=== PATIENT | female | born 1955 | race Two or more races ===

== ENCOUNTER 2021-01-15 14:55 | Inpatient (IN) | payer MEDICAID ==
[~2021-01-15] VITALS: Ht 160 cm; Wt 100.0 kg
[~2021-01-15 14:55] MED LIST: AMOX500T86 PO; ASCO500C49 PO; ASPI-543 PO; ATOR80TA PO; BUSP5TAB51 PO; CETI10CH PO; CHOL10006 PO; FERR-20 PO; FLUT0.05 NAS; FURO40TA4 PO; GABA300C10 PO; LEVO100T8 PO; LOS25T GT; METO25TA93 PO; ONDA-155 PO; PANT40TA2 PO; PRED20TA2 PO; SULF400T PO; SULF400T11 PO; SULF500T8 PO; VENL150T19 PO
[2021-01-15 16:01] LABS: Basophils # (auto) 0 10 ^3/uL (0-0.2); Basophils % (auto) 0.3 % (0.0-2.0); Eosinophils # (auto) 0 10 ^3/uL (0-0.8); Eosinophils % (auto) 0.3 % (0.0-7.0); Hematocrit 40.6 % (36.0-46.0); Hemoglobin 13.3 g/dL (12.2-16.2); Lymphocytes # (auto) 0.8 10 ^3/uL (0.4-5.4); Lymphocytes % (auto) 6.7 % (10.0-50.0); Mean Corpuscular Hgb Conc. 32.7 g/dL (32.0-36.0); Mean Corpuscular Volume 85.4 fL (80.0-100.0); Monocytes # (auto) 0.2 10 ^3/uL (0-1.3); Monocytes % (auto) 1.5 % (0.0-12.0); Neutrophils # (auto) 11.1 10 ^3/uL (1.6-8.6); Neutrophils % (auto) 91.2 % (37.0-80.0); Red Blood Cells 4.75 10^6/uL (4.0-5.20); Red Cell Distribution Width 14.7 % (11.8-14.3); White Blood Cell 12.2 10^3/uL (4.4-10.8)
[2021-01-15 16:22] LABS: Albumin 3.1 g/dL (3.4-5.0); Calcium 8.5 mg/dL (8.5-10.1); Potassium 3.9 mmol/L (3.5-5.1)
[2021-01-15 16:27] LABS: BUN/Creatinine Ratio 18.6; Bilirubin, Total 0.5 mg/dL (0.2-1.0); Total Protein 7.6 g/dL (6.4-8.2)
[2021-01-15] MEDS ORDERED: cefTRIAXone 1GM/50ML D5W 50 ML IV ONE (16:45)
[2021-01-15] MEDS ORDERED: FUROSEMIDE 40 MG/4 ML VIAL IV ONE (16:45)
[2021-01-15] MEDS ORDERED: AZITHROMYCIN 500MG/ 250ML 250 ML IV ONE (16:45)
[2021-01-15 21:52] LABS: Urine WBC None Seen /hpf (0 - 5)
[2021-01-15 22:09] LABS: Urine Bacteria NONE SEEN /hpf (None Seen); Urine Blood TRACE /uL (Negative); Urine Specific Gravity 1.014 (1.001-1.035)
[2021-01-16] MEDS ORDERED: NITROGLYCERIN 0.4 MG SL TAB SL PRN (15:00)
[2021-01-16] MEDS ORDERED: ONDANSETRON HCL 4 MG/2 ML VIAL IV PRN (15:00)
[2021-01-16] MEDS ORDERED: MORPHINE SULFATE INJECTION 2 MG/ML SYRG IV PRN ×2 (15:00)
[2021-01-16] MEDS ORDERED: ACETAMINOPHEN 500 MG TAB PO PRN (15:00)
[2021-01-16 16:00] VITALS: BP 134/83
[2021-01-16] MEDS: PIPERACILLIN-TAZOB 3.375GM 100 ML IV SCH (16:45)
[2021-01-16 17:00] VITALS: BP 130/79
[2021-01-16] MEDS: guaiFENesin-DM 100/10mg/5ml SYR PO PRN (17:40)
[2021-01-16 22:16] VITALS: BP 118/78
[2021-01-16] MEDS: GABAPENTIN 300 MG CAP PO SCH (22:17)
[2021-01-17] MEDS: PIPERACILLIN-TAZOB 3.375GM 100 ML IV SCH ×4 (00:35→23:58)
[2021-01-17 03:07] VITALS: BP 118/78
[2021-01-17] MEDS: LEVOTHYROXINE SODIUM 100 MCG TAB PO SCH (06:14)
[2021-01-17] MEDS: HYDROcodone-ACET 5/325MG TAB PO PRN ×2 (08:36→14:21)
[2021-01-17] MEDS: guaiFENesin-DM 100/10mg/5ml SYR PO PRN ×2 (08:37→14:20)
[2021-01-17 08:44] VITALS: BP 129/95
[2021-01-17] MEDS: LOSARTAN POTASSIUM 25 MG TAB PO SCH (10:35)
[2021-01-17] MEDS: VENLAFAXINE HCL 37.5mg XR cap PO SCH (10:36)
[2021-01-17] MEDS: GABAPENTIN 300 MG CAP PO SCH ×2 (10:37→21:34)
[2021-01-17] MEDS: PANTOPRAZOLE 40 MG TAB PO SCH (10:37)
[2021-01-17] MEDS ORDERED: methylPREDNISolone SOD SUCC 40 MG/ML VL IV ONE (11:45)
[2021-01-17 13:00] VITALS: BP 167/81
[2021-01-17 17:00] VITALS: BP 113/72
[2021-01-17] MEDS ORDERED: AZITHROMYCIN 250 MG TAB PO ONE (19:45)
[2021-01-17] MEDS ORDERED: methylPREDNISolone SOD SUCC 40 MG/ML VL IV SCH (20:00)
[2021-01-17 22:00] VITALS: BP 105/65
[2021-01-18 04:44] VITALS: BP 125/78
[2021-01-18] MEDS: LEVOTHYROXINE SODIUM 100 MCG TAB PO SCH (06:19)
[2021-01-18 08:00] VITALS: BP 145/80
[2021-01-18] MEDS: PIPERACILLIN-TAZOB 3.375GM 100 ML IV SCH ×2 (08:00→17:56)
[2021-01-18 09:00] VITALS: BP 145/80
[2021-01-18] MEDS: predniSONE 20 MG TAB PO SCH (09:36)
[2021-01-18] MEDS: PANTOPRAZOLE 40 MG TAB PO SCH (09:37)
[2021-01-18] MEDS: GABAPENTIN 300 MG CAP PO SCH ×2 (09:37→21:46)
[2021-01-18] MEDS: VENLAFAXINE HCL 37.5mg XR cap PO SCH (09:37)
[2021-01-18] MEDS: AZITHROMYCIN 250 MG TAB PO SCH (09:38)
[2021-01-18] MEDS: LOSARTAN POTASSIUM 25 MG TAB PO SCH (09:42)
[2021-01-18 10:28] LABS: Basophils # (auto) 0 10 ^3/uL (0-0.2); Basophils % (auto) 0.5 % (0.0-2.0); Eosinophils # (auto) 0.3 10 ^3/uL (0-0.8); Eosinophils % (auto) 2.9 % (0.0-7.0); Hematocrit 37.2 % (36.0-46.0); Hemoglobin 12.3 g/dL (12.2-16.2); Lymphocytes # (auto) 1.6 10 ^3/uL (0.4-5.4); Lymphocytes % (auto) 17.7 % (10.0-50.0); Mean Corpuscular Hemoglobin 28.3 pg (28.0-32.0); Mean Corpuscular Hgb Conc. 33.1 g/dL (32.0-36.0); Mean Corpuscular Volume 85.4 fL (80.0-100.0); Monocytes # (auto) 1.1 10 ^3/uL (0-1.3); Monocytes % (auto) 12.2 % (0.0-12.0); Neutrophils % (auto) 66.7 % (37.0-80.0); Red Blood Cells 4.35 10^6/uL (4.0-5.20); Red Cell Distribution Width 14.4 % (11.8-14.3); White Blood Cell 9.1 10^3/uL (4.4-10.8)
[2021-01-18 10:56] LABS: BUN/Creatinine Ratio 26.8; Calcium 8.4 mg/dL (8.5-10.1); Potassium 3.9 mmol/L (3.5-5.1)
[2021-01-18] MEDS: ALBUTEROL SULF 2.5 MG/0.5ML(0.5%) NEB SOLN NEB PRN ×2 (11:35→20:28)
[2021-01-18] MEDS: IPRATROPIUM BROM 0.5 MG/2.5ML INH SOL NEB PRN ×2 (11:36→20:28)
[2021-01-18 13:00] VITALS: BP 136/72
[2021-01-18] MEDS ORDERED: FLUCONAZOLE 200MG/100ML 100 ML IV ONE (16:45)
[2021-01-18 17:00] VITALS: BP 141/79
[2021-01-18 22:00] VITALS: BP 112/67
[2021-01-19] MEDS: PIPERACILLIN-TAZOB 3.375GM 100 ML IV SCH ×3 (00:28→17:30)
[2021-01-19] MEDS: guaiFENesin-DM 100/10mg/5ml SYR PO PRN ×2 (00:40→15:36)
[2021-01-19] MEDS: IPRATROPIUM BROM 0.5 MG/2.5ML INH SOL NEB PRN ×2 (01:30→20:18)
[2021-01-19] MEDS: ALBUTEROL SULF 2.5 MG/0.5ML(0.5%) NEB SOLN NEB PRN ×2 (01:30→20:18)
[2021-01-19 05:00] VITALS: BP 136/81
[2021-01-19] MEDS: LEVOTHYROXINE SODIUM 100 MCG TAB PO SCH (06:35)
[2021-01-19 08:00] VITALS: BP 143/78
[2021-01-19] MEDS: FLUCONAZOLE 200MG/100ML 100 ML IV SCH ×2 (10:00→12:28)
[2021-01-19] MEDS: predniSONE 20 MG TAB PO SCH (10:00)
[2021-01-19] MEDS: LOSARTAN POTASSIUM 25 MG TAB PO SCH (10:30)
[2021-01-19] MEDS: GABAPENTIN 300 MG CAP PO SCH ×2 (10:30→21:40)
[2021-01-19] MEDS: PANTOPRAZOLE 40 MG TAB PO SCH (10:30)
[2021-01-19] MEDS: VENLAFAXINE HCL 37.5mg XR cap PO SCH (10:30)
[2021-01-19] MEDS: AZITHROMYCIN 250 MG TAB PO SCH (10:30)
[2021-01-19 13:00] VITALS: BP 130/75
[2021-01-19 16:55] VITALS: BP 139/86
[2021-01-19 22:00] VITALS: BP 123/76
[2021-01-19 22:05] VITALS: BP 139/86
[2021-01-20] MEDS: PIPERACILLIN-TAZOB 3.375GM 100 ML IV SCH ×2 (00:17→08:23)
[2021-01-20 05:00] VITALS: BP 131/75
[2021-01-20] MEDS: LEVOTHYROXINE SODIUM 100 MCG TAB PO SCH (06:35)
[2021-01-20 08:32] VITALS: BP 142/88
[2021-01-20] MEDS: FLUCONAZOLE 200MG/100ML 100 ML IV SCH ×3 (10:00→11:00)
[2021-01-20] MEDS: predniSONE 20 MG TAB PO SCH (10:31)
[2021-01-20] MEDS: AZITHROMYCIN 250 MG TAB PO SCH (10:31)
[2021-01-20] MEDS: VENLAFAXINE HCL 37.5mg XR cap PO SCH (10:31)
[2021-01-20] MEDS: GABAPENTIN 300 MG CAP PO SCH (10:31)
[2021-01-20] MEDS: PANTOPRAZOLE 40 MG TAB PO SCH (10:31)
[2021-01-20] MEDS: LOSARTAN POTASSIUM 25 MG TAB PO SCH (10:32)
[2021-01-20] MEDS ORDERED: PRED20TA2 PO (12:00)
[2021-01-20 12:50] VITALS: BP 133/64
[2021-01-20 13:00] VITALS: BP 133/64
== END 2021-01-20 14:45 | disposition home or self-care (01) | DRG 133 ==
LOC: ER 14:55 → TELE 01-16 14:48 → TELE-CENTR 01-16 16:37
PROVIDERS: ADMIT Nurse Practitioner Acute Care; ATTEND Internal Medicine Nephrology
DX: J96.21 Acute and chronic respiratory failure with hypoxia (principal); J18.9 Pneumonia, unspecified organism; M34.9 Systemic sclerosis, unspecified; I11.0 Hypertensive heart disease with heart failure; E88.09 Other disorders of plasma-protein metabolism, not elsewhere classified; J45.901 Unspecified asthma with (acute) exacerbation; I50.9 Heart failure, unspecified; J84.10 Pulmonary fibrosis, unspecified; K75.4 Autoimmune hepatitis; M35.1 Other overlap syndromes; M32.9 Systemic lupus erythematosus, unspecified; E78.5 Hyperlipidemia, unspecified; E03.9 Hypothyroidism, unspecified; K21.9 Gastro-esophageal reflux disease without esophagitis; Z20.822 Contact with and (suspected) exposure to COVID-19; E66.9 Obesity, unspecified; D72.829 Elevated white blood cell count, unspecified; Z68.39 Body mass index [BMI] 39.0-39.9, adult; Z88.8 Allergy status to other drugs, medicaments and biological substances; Z79.899 Other long term (current) drug therapy; Z82.5 Family history of asthma and other chronic lower respiratory diseases; Z86.15 Personal history of latent tuberculosis infection; Z86.16 Personal history of COVID-19; Z86.711 Personal history of pulmonary embolism; Z87.01 Personal history of pneumonia (recurrent)
CPT/HCPCS: 36415; 36600; 71045; 71250; 80048; 80053; 81001; 82542; 82805; 83880; 84484; 85025; 86738; 87040; 87070; 87077; 87081; 87205; 87278; 87426; 87804; 93005; 94640; 96365; 96367; 96375; G0378; J0696; J1450; J2543

== ENCOUNTER 2021-02-11 08:43 | Inpatient (IN) | payer MEDICAID ==
[~2021-02-11] VITALS: Ht 162.6 cm; Wt 102.7 kg
[2021-02-11 10:58] LABS: Basophils # (auto) 0.1 10 ^3/uL (0-0.2); Basophils % (auto) 1.5 % (0.0-2.0); Eosinophils # (auto) 0.3 10 ^3/uL (0-0.8); Eosinophils % (auto) 4.1 % (0.0-7.0); Hematocrit 39.5 % (36.0-46.0); Lymphocytes # (auto) 1.3 10 ^3/uL (0.4-5.4); Lymphocytes % (auto) 16.9 % (10.0-50.0); Mean Corpuscular Hemoglobin 27.9 pg (28.0-32.0); Mean Corpuscular Hgb Conc. 32.8 g/dL (32.0-36.0); Monocytes # (auto) 0.8 10 ^3/uL (0-1.3); Neutrophils # (auto) 5.2 10 ^3/uL (1.6-8.6); Neutrophils % (auto) 67.5 % (37.0-80.0); Nucleated Red Blood Cells % 0.1 %; Red Blood Cells 4.64 10^6/uL (4.0-5.20); Red Cell Distribution Width 15.1 % (11.8-14.3); White Blood Cell 7.7 10^3/uL (4.4-10.8)
[2021-02-11 12:10] LABS: BUN/Creatinine Ratio 17.5; Potassium 3.7 mmol/L (3.5-5.1)
[2021-02-11 12:11] LABS: Albumin 2.7 g/dL (3.4-5.0); Bilirubin, Total 0.4 mg/dL (0.2-1.0); Calcium 8.6 mg/dL (8.5-10.1); Total Protein 6.9 g/dL (6.4-8.2)
[2021-02-11] MEDS ORDERED: MORPHINE SULFATE INJECTION 2 MG/ML SYRG IV ONE (17:00)
[2021-02-11] MEDS ORDERED: ONDANSETRON HCL 4 MG/2 ML VIAL IV ONE (17:00)
[2021-02-11] MEDS ORDERED: ONDANSETRON HCL 4 MG/2 ML VIAL IV PRN (18:30)
[2021-02-11] MEDS ORDERED: LORazepam 0.5 MG TAB PO PRN (18:30)
[2021-02-11] MEDS ORDERED: MORPHINE SULFATE 4 MG/ML SYR/VIAL IV PRN (18:30)
[2021-02-11] MEDS ORDERED: NITROGLYCERIN 0.4 MG SL TAB SL PRN (18:30)
[2021-02-11 22:30] VITALS: BP 125/65
[2021-02-11] MEDS: METOPROLOL TARTRATE 25 MG TAB PO SCH (23:00)
[2021-02-11] MEDS: ATORVASTATIN 20 MG TAB PO SCH (23:44)
[2021-02-11] MEDS: ACETAMINOPHEN 325 MG TAB PO PRN (23:45)
[2021-02-12] VITALS (7 sets, daily range): BP systolic 101–137; BP diastolic 56–98
[2021-02-12 06:37] LABS: Basophils # (auto) 0.1 10 ^3/uL (0-0.2); Basophils % (auto) 1.6 % (0.0-2.0); Eosinophils # (auto) 0.5 10 ^3/uL (0-0.8); Eosinophils % (auto) 8.1 % (0.0-7.0); Hematocrit 36.6 % (36.0-46.0); Hemoglobin 12.2 g/dL (12.2-16.2); Lymphocytes # (auto) 1.7 10 ^3/uL (0.4-5.4); Mean Corpuscular Hemoglobin 28.2 pg (28.0-32.0); Mean Corpuscular Hgb Conc. 33.4 g/dL (32.0-36.0); Mean Corpuscular Volume 84.4 fL (80.0-100.0); Monocytes # (auto) 0.8 10 ^3/uL (0-1.3); Neutrophils # (auto) 2.6 10 ^3/uL (1.6-8.6); Neutrophils % (auto) 46.3 % (37.0-80.0); Nucleated Red Blood Cells % 0.2 %; Red Blood Cells 4.34 10^6/uL (4.0-5.20); White Blood Cell 5.6 10^3/uL (4.4-10.8)
[2021-02-12] MEDS: ACETAMINOPHEN 325 MG TAB PO PRN ×3 (06:37→22:39)
[2021-02-12 06:52] LABS: Calcium 8.4 mg/dL (8.5-10.1); Magnesium 2.8 mg/dL (1.6-2.6); Potassium 4.2 mmol/L (3.5-5.1)
[2021-02-12 07:00] LABS: BUN/Creatinine Ratio 17.7
[2021-02-12] MEDS: METOPROLOL TARTRATE 25 MG TAB PO SCH ×2 (08:52→22:00)
[2021-02-12] MEDS: DOCUSATE SOD 100 MG CAP PO SCH (08:52)
[2021-02-12] MEDS: ASPirin 81 mg TAB PO SCH (08:52)
[2021-02-12] MEDS ORDERED: CLOPIDOGREL BISULFATE 75 MG TAB PO SCH (10:00)
[2021-02-12] MEDS ORDERED: PANTOPRAZOLE 40 MG TAB PO ONE (15:15)
[2021-02-12] MEDS ORDERED: predniSONE 20 MG TAB PO ONE (15:15)
[2021-02-12] MEDS: BUDESONIDE (INHALATION) 0.5 MG/2 ML NEB NEB SCH (19:03)
[2021-02-12] MEDS: ALBUTEROL SULF 2.5 MG/0.5ML(0.5%) NEB SOLN NEB SCH ×2 (19:03→22:10)
[2021-02-12] MEDS: IPRATROPIUM BROM 0.5 MG/2.5ML INH SOL NEB SCH ×2 (19:03→22:10)
[2021-02-12] MEDS: ATORVASTATIN 20 MG TAB PO SCH (22:00)
[2021-02-13] VITALS (8 sets, daily range): BP systolic 116–162; BP diastolic 66–84
[2021-02-13] MEDS: ACETAMINOPHEN 325 MG TAB PO PRN (05:28)
[2021-02-13] MEDS: IPRATROPIUM BROM 0.5 MG/2.5ML INH SOL NEB SCH ×5 (06:46→22:09)
[2021-02-13] MEDS: ALBUTEROL SULF 2.5 MG/0.5ML(0.5%) NEB SOLN NEB SCH ×5 (06:46→22:09)
[2021-02-13] MEDS: ASPirin 81 mg TAB PO SCH (08:24)
[2021-02-13] MEDS: predniSONE 20 MG TAB PO SCH (08:24)
[2021-02-13] MEDS: DOCUSATE SOD 100 MG CAP PO SCH (08:24)
[2021-02-13] MEDS: PANTOPRAZOLE 40 MG TAB PO SCH (08:25)
[2021-02-13] MEDS: METOPROLOL TARTRATE 25 MG TAB PO SCH ×2 (08:25→21:46)
[2021-02-13] MEDS: BUDESONIDE (INHALATION) 0.5 MG/2 ML NEB NEB SCH ×2 (10:30→19:18)
[2021-02-13] MEDS ORDERED: PRED20TA2 PO (16:23)
[2021-02-13] MEDS ORDERED: MONT5CHW23 PO (16:23)
[2021-02-13] MEDS: busPIRone HCL 10 MG TAB PO SCH (21:46)
[2021-02-13] MEDS: ATORVASTATIN 20 MG TAB PO SCH (21:46)
[2021-02-13] MEDS: MONTELUKAST SODIUM 10 MG TAB PO SCH (21:47)
[2021-02-14 05:00] VITALS: BP 136/74
[2021-02-14] MEDS: IPRATROPIUM BROM 0.5 MG/2.5ML INH SOL NEB SCH ×5 (07:32→22:04)
[2021-02-14] MEDS: BUDESONIDE (INHALATION) 0.5 MG/2 ML NEB NEB SCH ×2 (07:32→14:16)
[2021-02-14] MEDS: ALBUTEROL SULF 2.5 MG/0.5ML(0.5%) NEB SOLN NEB SCH ×5 (07:32→22:04)
[2021-02-14 09:00] VITALS: BP 121/62
[2021-02-14] MEDS: ASPirin 81 mg TAB PO SCH (09:14)
[2021-02-14] MEDS: DOCUSATE SOD 100 MG CAP PO SCH (09:15)
[2021-02-14] MEDS: METOPROLOL TARTRATE 25 MG TAB PO SCH ×2 (09:15→21:13)
[2021-02-14] MEDS: predniSONE 20 MG TAB PO SCH (09:15)
[2021-02-14] MEDS: ACETAMINOPHEN 325 MG TAB PO PRN ×2 (09:16→19:22)
[2021-02-14] MEDS: PANTOPRAZOLE 40 MG TAB PO SCH (09:16)
[2021-02-14] MEDS: FUROSEMIDE 20 MG TAB PO SCH (09:36)
[2021-02-14 12:39] VITALS: BP 132/76
[2021-02-14 16:52] VITALS: BP 104/63
[2021-02-14] MEDS: ATORVASTATIN 20 MG TAB PO SCH (21:09)
[2021-02-14] MEDS: busPIRone HCL 10 MG TAB PO SCH (21:09)
[2021-02-14] MEDS: MONTELUKAST SODIUM 10 MG TAB PO SCH (21:11)
[2021-02-14 21:40] VITALS: BP 105/69
[2021-02-15] VITALS (7 sets, daily range): BP systolic 107–136; BP diastolic 61–72
[2021-02-15] MEDS: ALBUTEROL SULF 2.5 MG/0.5ML(0.5%) NEB SOLN NEB SCH ×5 (07:11→22:42)
[2021-02-15] MEDS: IPRATROPIUM BROM 0.5 MG/2.5ML INH SOL NEB SCH ×5 (07:11→22:42)
[2021-02-15] MEDS: DOCUSATE SOD 100 MG CAP PO SCH (09:52)
[2021-02-15] MEDS: predniSONE 20 MG TAB PO SCH (09:52)
[2021-02-15] MEDS: PANTOPRAZOLE 40 MG TAB PO SCH (09:52)
[2021-02-15] MEDS: FUROSEMIDE 20 MG TAB PO SCH (09:52)
[2021-02-15] MEDS: ASPirin 81 mg TAB PO SCH (09:52)
[2021-02-15] MEDS: busPIRone HCL 10 MG TAB PO SCH ×2 (09:53→21:30)
[2021-02-15] MEDS: METOPROLOL TARTRATE 25 MG TAB PO SCH ×2 (09:53→21:30)
[2021-02-15] MEDS: BUDESONIDE (INHALATION) 0.5 MG/2 ML NEB NEB SCH ×2 (10:34→18:36)
[2021-02-15 11:49] LABS: Basophils # (auto) 0.1 10 ^3/uL (0-0.2); Basophils % (auto) 0.8 % (0.0-2.0); Eosinophils # (auto) 0.4 10 ^3/uL (0-0.8); Eosinophils % (auto) 3.6 % (0.0-7.0); Hematocrit 40.7 % (36.0-46.0); Hemoglobin 13.2 g/dL (12.2-16.2); Lymphocytes % (auto) 18.3 % (10.0-50.0); Mean Corpuscular Hemoglobin 27.3 pg (28.0-32.0); Mean Corpuscular Hgb Conc. 32.5 g/dL (32.0-36.0); Monocytes # (auto) 1.1 10 ^3/uL (0-1.3); Monocytes % (auto) 9.9 % (0.0-12.0); Neutrophils # (auto) 7.3 10 ^3/uL (1.6-8.6); Neutrophils % (auto) 67.4 % (37.0-80.0); Red Blood Cells 4.85 10^6/uL (4.0-5.20); Red Cell Distribution Width 14.9 % (11.8-14.3); White Blood Cell 10.9 10^3/uL (4.4-10.8)
[2021-02-15 12:15] LABS: BUN/Creatinine Ratio 32.7; Calcium 8.8 mg/dL (8.5-10.1)
[2021-02-15] MEDS: ATORVASTATIN 20 MG TAB PO SCH (21:31)
[2021-02-15] MEDS: MONTELUKAST SODIUM 10 MG TAB PO SCH (21:31)
[2021-02-16] MEDS: ACETAMINOPHEN 325 MG TAB PO PRN (04:40)
[2021-02-16 05:00] VITALS: BP 126/62
[2021-02-16] MEDS: ALBUTEROL SULF 2.5 MG/0.5ML(0.5%) NEB SOLN NEB SCH ×5 (08:46→22:17)
[2021-02-16] MEDS: BUDESONIDE (INHALATION) 0.5 MG/2 ML NEB NEB SCH ×2 (08:46→22:17)
[2021-02-16] MEDS: IPRATROPIUM BROM 0.5 MG/2.5ML INH SOL NEB SCH ×5 (08:46→22:17)
[2021-02-16 09:00] VITALS: BP 117/84
[2021-02-16] MEDS: busPIRone HCL 10 MG TAB PO SCH ×2 (10:14→22:15)
[2021-02-16] MEDS: predniSONE 20 MG TAB PO SCH (10:14)
[2021-02-16] MEDS: ASPirin 81 mg TAB PO SCH (10:14)
[2021-02-16] MEDS: PANTOPRAZOLE 40 MG TAB PO SCH (10:15)
[2021-02-16] MEDS: DOCUSATE SOD 100 MG CAP PO SCH (10:15)
[2021-02-16] MEDS: METOPROLOL TARTRATE 25 MG TAB PO SCH ×2 (10:15→22:15)
[2021-02-16] MEDS: FUROSEMIDE 20 MG TAB PO SCH (10:15)
[2021-02-16] MEDS ORDERED: METOPROLOL TARTRATE 25 MG TAB PO ONE (11:00)
[2021-02-16 13:00] VITALS: BP 135/74
[2021-02-16] MEDS ORDERED: METH4PAK PO (14:23)
[2021-02-16] MEDS ORDERED: MET25T PO (14:24)
[2021-02-16 16:55] VITALS: BP 97/46
[2021-02-16 22:01] VITALS: BP 119/83
[2021-02-16] MEDS: ATORVASTATIN 20 MG TAB PO SCH (22:13)
[2021-02-16] MEDS: MONTELUKAST SODIUM 10 MG TAB PO SCH (22:13)
[2021-02-17 05:00] VITALS: BP 130/67
[2021-02-17] MEDS: IPRATROPIUM BROM 0.5 MG/2.5ML INH SOL NEB SCH ×4 (06:35→14:43)
[2021-02-17] MEDS: ALBUTEROL SULF 2.5 MG/0.5ML(0.5%) NEB SOLN NEB SCH ×4 (06:35→14:43)
[2021-02-17] MEDS: BUDESONIDE (INHALATION) 0.5 MG/2 ML NEB NEB SCH (06:35)
[2021-02-17 08:38] VITALS: BP 155/72
[2021-02-17] MEDS: METOPROLOL TARTRATE 25 MG TAB PO SCH (10:10)
[2021-02-17] MEDS: busPIRone HCL 10 MG TAB PO SCH (10:11)
[2021-02-17] MEDS: predniSONE 20 MG TAB PO SCH (10:11)
[2021-02-17] MEDS: DOCUSATE SOD 100 MG CAP PO SCH (10:11)
[2021-02-17] MEDS: FUROSEMIDE 20 MG TAB PO SCH (10:11)
[2021-02-17] MEDS: PANTOPRAZOLE 40 MG TAB PO SCH (10:11)
[2021-02-17] MEDS: ASPirin 81 mg TAB PO SCH (10:11)
[2021-02-17] MEDS ORDERED: PRED20TA2 PO (10:21)
[2021-02-17] MEDS ORDERED: VENL150T19 PO (10:51)
[2021-02-17] MEDS ORDERED: GABA300C10 PO (10:51)
[2021-02-17] MEDS ORDERED: ATOR-47 PO (10:51)
[2021-02-17] MEDS ORDERED: MONT10TA23 PO (10:51)
[2021-02-17] MEDS ORDERED: METO25TA5 PO (10:51)
[2021-02-17] MEDS ORDERED: ALBUAER3 IN (10:51)
[2021-02-17] MEDS ORDERED: PANT40T PO (10:51)
[2021-02-17] MEDS ORDERED: FERR-20 PO (10:51)
[2021-02-17] MEDS ORDERED: BUSP5TAB51 PO (10:51)
[2021-02-17] MEDS ORDERED: ASPI-543 PO (10:51)
[2021-02-17] MEDS ORDERED: LEVO100T8 PO (10:51)
[2021-02-17] MEDS ORDERED: FURO20TA3 PO (10:51)
[2021-02-17] MEDS ORDERED: METO25TA93 PO (10:56)
[2021-02-17 12:42] VITALS: BP 129/79
[2021-02-17 13:00] VITALS: BP 129/79
== END 2021-02-17 14:00 | disposition home or self-care (01) | DRG 142 ==
LOC: ER 08:43 → OVERFLOW 18:16 → TELE-WESTW 22:46
PROVIDERS: ADMIT Hospitalist; ATTEND Internal Medicine
DX: J84.10 Pulmonary fibrosis, unspecified (principal); J96.21 Acute and chronic respiratory failure with hypoxia; E43 Unspecified severe protein-calorie malnutrition; J45.901 Unspecified asthma with (acute) exacerbation; J44.9 Chronic obstructive pulmonary disease, unspecified; K21.9 Gastro-esophageal reflux disease without esophagitis; K74.60 Unspecified cirrhosis of liver; E66.01 Morbid (severe) obesity due to excess calories; E78.5 Hyperlipidemia, unspecified; I10 Essential (primary) hypertension; I35.0 Nonrheumatic aortic (valve) stenosis; Z88.8 Allergy status to other drugs, medicaments and biological substances; Z82.5 Family history of asthma and other chronic lower respiratory diseases; Z86.15 Personal history of latent tuberculosis infection; Z86.16 Personal history of COVID-19; Z86.711 Personal history of pulmonary embolism; Z68.38 Body mass index [BMI] 38.0-38.9, adult; Z20.822 Contact with and (suspected) exposure to COVID-19; Z68.27 Body mass index [BMI] 27.0-27.9, adult
CPT/HCPCS: 36415; 36600; 71045; 71250; 80048; 80053; 82805; 83735; 83880; 84439; 84443; 84484; 85025; 87426; 93005; 94640; 96374; 96375; G0378; J2405

== ENCOUNTER 2021-02-27 11:27 | Inpatient (IN) | payer MEDICAID ==
[~2021-02-27] VITALS: Ht 162.6 cm; Wt 99.5 kg
[~2021-02-27 11:27] MED LIST changes: +ALBUAER3 IN; -AMOX500T86 PO; +ATOR-47 PO; +FURO20TA3 PO; -FURO40TA4 PO; +MET25T PO; +METO25TA5 PO; +MONT10TA23 PO; +MONT5CHW23 PO; +PANT40T PO; -SULF400T PO; -SULF400T11 PO
[2021-02-27 12:38] LABS: Basophils # (auto) 0.1 10 ^3/uL (0-0.2); Basophils % (auto) 0.6 % (0.0-2.0); Eosinophils # (auto) 0.5 10 ^3/uL (0-0.8); Eosinophils % (auto) 4.4 % (0.0-7.0); Hematocrit 39.5 % (36.0-46.0); Hemoglobin 13.1 g/dL (12.2-16.2); Lymphocytes # (auto) 1.5 10 ^3/uL (0.4-5.4); Lymphocytes % (auto) 12.5 % (10.0-50.0); Mean Corpuscular Hemoglobin 28.1 pg (28.0-32.0); Mean Corpuscular Hgb Conc. 33.1 g/dL (32.0-36.0); Mean Corpuscular Volume 84.9 fL (80.0-100.0); Monocytes # (auto) 1.4 10 ^3/uL (0-1.3); Monocytes % (auto) 11.2 % (0.0-12.0); Neutrophils # (auto) 8.8 10 ^3/uL (1.6-8.6); Neutrophils % (auto) 71.3 % (37.0-80.0); Red Blood Cells 4.66 10^6/uL (4.0-5.20); Red Cell Distribution Width 15.1 % (11.8-14.3); White Blood Cell 12.4 10^3/uL (4.4-10.8)
[2021-02-27 12:53] LABS: Albumin 2.9 g/dL (3.4-5.0); Calcium 8.6 mg/dL (8.5-10.1); Potassium 4.4 mmol/L (3.5-5.1)
[2021-02-27 12:59] LABS: BUN/Creatinine Ratio 11.7; Bilirubin, Total 0.6 mg/dL (0.2-1.0); Total Protein 7.8 g/dL (6.4-8.2)
[2021-02-27 14:46] LABS: Urine Bacteria NONE SEEN /hpf (None Seen); Urine Blood 1+ /uL (Negative); Urine Mucus FEW (None Seen); Urine Specific Gravity 1.026 (1.001-1.035); Urine WBC 2 /hpf (0 - 5)
[2021-02-27] MEDS ORDERED: MORPHINE SULFATE INJECTION 2 MG/ML SYRG IV PRN ×2 (16:30→17:30)
[2021-02-27] MEDS ORDERED: NITROGLYCERIN 0.4 MG SL TAB SL PRN ×2 (16:30→17:30)
[2021-02-27] MEDS ORDERED: IPRATROPIUM BROM 0.5 MG/2.5ML INH SOL NEB ONE (17:00)
[2021-02-27] MEDS ORDERED: BUDESONIDE (INHALATION) 0.5 MG/2 ML NEB NEB ONE (17:00)
[2021-02-27] MEDS ORDERED: ALBUTEROL SULF 2.5 MG/0.5ML(0.5%) NEB SOLN NEB ONE (17:00)
[2021-02-27] MEDS ORDERED: methylPREDNISolone SOD SUCC 125 MG/2 ML VL IV ONE (17:00)
[2021-02-27] MEDS ORDERED: PANTOPRAZOLE 40 MG/10 ML VIAL INJ IV ONE (17:15)
[2021-02-27] MEDS ORDERED: ENOXAPARIN SOD 40 MG/0.4 ML SYRINGE SC ONE (17:15)
[2021-02-27] MEDS ORDERED: BENAZEPRIL HCL 10 MG TAB PO ONE (17:15)
[2021-02-27] MEDS ORDERED: cefTRIAXone 1GM/50ML D5W 50 ML IV ONE (17:15)
[2021-02-27] MEDS ORDERED: FLUT1SPR21 (17:21)
[2021-02-27] MEDS ORDERED: ASPI-498 PO (17:22)
[2021-02-27] MEDS ORDERED: PANT40TA57 PO (17:22)
[2021-02-27] MEDS ORDERED: IPRIH INH (17:23)
[2021-02-27] MEDS ORDERED: LOSA25TA38 PO (17:25)
[2021-02-27] MEDS ORDERED: BUTA-251 PO (17:25)
[2021-02-27] MEDS ORDERED: TEMAZEPAM 15 MG CAP PO PRN (17:30)
[2021-02-27] MEDS ORDERED: ALUM & MAG HYDROX-SIMETH LIQ(MAALOX) 30 ML PO PRN (17:30)
[2021-02-27] MEDS ORDERED: ACETAMINOPHEN 325 MG TAB PO PRN (17:30)
[2021-02-27] MEDS ORDERED: DOCUSATE SOD 100 MG CAP PO PRN (17:30)
[2021-02-27] MEDS ORDERED: ONDANSETRON HCL 4 MG/2 ML VIAL IV PRN (17:30)
[2021-02-27] MEDS ORDERED: AZITHROMYCIN 500MG/ 250ML 250 ML IV ONE (18:00)
[2021-02-27] MEDS: POTASSIUM CHL 20 Meq TABLET PO SCH (18:56)
[2021-02-27] MEDS: FUROSEMIDE 20 MG/2 ML VIAL IV SCH (18:57)
[2021-02-27 20:24] LABS: Cholesterol 137 mg/dL (< 200); Triglycerides 65 mg/dL (< 150)
[2021-02-27 20:25] VITALS: BP 145/68
[2021-02-27 20:27] LABS: HDL Cholesterol 66 mg/dL (40-59); LDL Cholesterol 67 mg/dL (< 100)
[2021-02-27] MEDS: [UNRECOGNIZED DRUG - OTHER] PO SCH (22:00)
[2021-02-27 22:29] VITALS: BP 127/55
[2021-02-28] VITALS (7 sets, daily range): BP systolic 105–136; BP diastolic 48–86
[2021-02-28] MEDS: IPRATROPIUM BROM 0.5 MG/2.5ML INH SOL NEB SCH ×8 (00:27→21:39)
[2021-02-28] MEDS: BUDESONIDE (INHALATION) 0.5 MG/2 ML NEB NEB SCH ×4 (00:27→09:46)
[2021-02-28] MEDS: MONTELUKAST SODIUM 10 MG TAB PO SCH ×2 (01:01→21:05)
[2021-02-28] MEDS: ATORVASTATIN 20 MG TAB PO SCH ×2 (01:02→21:04)
[2021-02-28] MEDS: hydrOXYchloroQUINE SULFATE 200 MG TAB PO SCH ×3 (01:02→21:05)
[2021-02-28] MEDS: methylPREDNISolone SOD SUCC 40 MG/ML VL IV SCH ×4 (01:03→21:04)
[2021-02-28] MEDS ORDERED: INFLUENZA QUAD 2021-2022 0.5 ML SYRG IM ONE (02:30)
[2021-02-28] MEDS: FUROSEMIDE 20 MG/2 ML VIAL IV SCH ×2 (06:12→18:02)
[2021-02-28] MEDS: LEVOTHYROXINE SODIUM 100 MCG TAB PO SCH (06:13)
[2021-02-28] MEDS: POTASSIUM CHL 20 Meq TABLET PO SCH ×2 (06:13→18:02)
[2021-02-28 06:15] LABS: Basophils # (auto) 0 10 ^3/uL (0-0.2); Basophils % (auto) 0.2 % (0.0-2.0); Eosinophils # (auto) 0 10 ^3/uL (0-0.8); Hematocrit 39.6 % (36.0-46.0); Hemoglobin 13.1 g/dL (12.2-16.2); Lymphocytes # (auto) 0.9 10 ^3/uL (0.4-5.4); Lymphocytes % (auto) 18.4 % (10.0-50.0); Mean Corpuscular Hgb Conc. 33.2 g/dL (32.0-36.0); Mean Corpuscular Volume 84.2 fL (80.0-100.0); Monocytes # (auto) 0.1 10 ^3/uL (0-1.3); Monocytes % (auto) 2.4 % (0.0-12.0); Neutrophils # (auto) 3.7 10 ^3/uL (1.6-8.6); Nucleated Red Blood Cells % 0.1 %; Red Cell Distribution Width 15.2 % (11.8-14.3); White Blood Cell 4.7 10^3/uL (4.4-10.8)
[2021-02-28 06:32] LABS: INR 1.12 (0.9-1.15); Partial Thromboplastin Time 27.7 sec (23.6-33.0); Potassium 3.9 mmol/L (3.5-5.1)
[2021-02-28 06:44] LABS: Albumin 2.8 g/dL (3.4-5.0); BUN/Creatinine Ratio 18.6; Bilirubin, Total 0.7 mg/dL (0.2-1.0); Calcium 8.4 mg/dL (8.5-10.1); Magnesium 2.9 mg/dL (1.6-2.6); Phosphorus 3.3 mg/dL (2.5-4.90); Uric Acid 3.9 mg/dL (2.6-6.0)
[2021-02-28] MEDS: [UNRECOGNIZED DRUG - OTHER] PO SCH ×2 (10:00→22:00)
[2021-02-28] MEDS: cefTRIAXone 1GM/50ML D5W 50 ML IV SCH (10:12)
[2021-02-28] MEDS: PANTOPRAZOLE 40 MG/10 ML VIAL INJ IV SCH (10:13)
[2021-02-28] MEDS: BENAZEPRIL HCL 10 MG TAB PO SCH (10:13)
[2021-02-28] MEDS: ASPirin 81 mg TAB PO SCH (10:13)
[2021-02-28] MEDS: ENOXAPARIN SOD 40 MG/0.4 ML SYRINGE SC SCH (10:14)
[2021-02-28] MEDS: METOPROLOL SUCCINATE XL 50 MG TAB PO SCH (10:14)
[2021-02-28] MEDS: AZITHROMYCIN 500MG/ 250ML 250 ML IV SCH (11:46)
[2021-02-28] MEDS: HYDROcodone-ACET 5/325MG TAB PO PRN (21:10)
[2021-03-01] MEDS: IPRATROPIUM BROM 0.5 MG/2.5ML INH SOL NEB SCH ×7 (02:10→22:45)
[2021-03-01 05:00] VITALS: BP 112/63
[2021-03-01] MEDS: LEVOTHYROXINE SODIUM 100 MCG TAB PO SCH (06:52)
[2021-03-01] MEDS: POTASSIUM CHL 20 Meq TABLET PO SCH ×2 (06:53→17:32)
[2021-03-01] MEDS: methylPREDNISolone SOD SUCC 40 MG/ML VL IV SCH ×3 (06:53→22:09)
[2021-03-01] MEDS: FUROSEMIDE 20 MG/2 ML VIAL IV SCH ×2 (06:54→17:33)
[2021-03-01] MEDS: BUDESONIDE (INHALATION) 0.5 MG/2 ML NEB NEB SCH ×2 (08:05→18:16)
[2021-03-01] MEDS: ASPirin 81 mg TAB PO SCH (08:56)
[2021-03-01] MEDS: PANTOPRAZOLE 40 MG/10 ML VIAL INJ IV SCH (08:56)
[2021-03-01] MEDS: cefTRIAXone 1GM/50ML D5W 50 ML IV SCH (08:56)
[2021-03-01] MEDS: METOPROLOL SUCCINATE XL 50 MG TAB PO SCH (08:57)
[2021-03-01] MEDS: BENAZEPRIL HCL 10 MG TAB PO SCH (08:57)
[2021-03-01] MEDS: ENOXAPARIN SOD 40 MG/0.4 ML SYRINGE SC SCH (08:57)
[2021-03-01] MEDS: hydrOXYchloroQUINE SULFATE 200 MG TAB PO SCH ×2 (08:57→22:10)
[2021-03-01] MEDS: [UNRECOGNIZED DRUG - OTHER] PO SCH ×2 (08:59→22:00)
[2021-03-01 09:00] VITALS: BP 132/93
[2021-03-01] MEDS: AZITHROMYCIN 500MG/ 250ML 250 ML IV SCH (10:02)
[2021-03-01] MEDS ORDERED: guaiFENesin-DM 100/10mg/5ml SYR PO ONE (11:00)
[2021-03-01] MEDS ORDERED: guaiFENesin-DM 100/10mg/5ml SYR PO PRN (11:00)
[2021-03-01 13:00] VITALS: BP 105/70
[2021-03-01 17:00] VITALS: BP 131/78
[2021-03-01 19:02] LABS: Basophils # (auto) 0 10 ^3/uL (0-0.2); Basophils % (auto) 0.1 % (0.0-2.0); Eosinophils # (auto) 0 10 ^3/uL (0-0.8); Hematocrit 41.4 % (36.0-46.0); Hemoglobin 13.3 g/dL (12.2-16.2); Lymphocytes % (auto) 6.8 % (10.0-50.0); Mean Corpuscular Hgb Conc. 32.1 g/dL (32.0-36.0); Mean Corpuscular Volume 84.1 fL (80.0-100.0); Monocytes # (auto) 0.9 10 ^3/uL (0-1.3); Monocytes % (auto) 5.7 % (0.0-12.0); Neutrophils # (auto) 13.4 10 ^3/uL (1.6-8.6); Neutrophils % (auto) 87.4 % (37.0-80.0); Red Blood Cells 4.92 10^6/uL (4.0-5.20); Red Cell Distribution Width 15.4 % (11.8-14.3); White Blood Cell 15.3 10^3/uL (4.4-10.8)
[2021-03-01 19:20] LABS: INR 1.07 (0.9-1.15); Partial Thromboplastin Time 25.1 sec (23.6-33.0)
[2021-03-01 19:22] LABS: BUN/Creatinine Ratio 29.5; Calcium 8.1 mg/dL (8.5-10.1); Potassium 4.3 mmol/L (3.5-5.1)
[2021-03-01] MEDS: ATORVASTATIN 20 MG TAB PO SCH (22:10)
[2021-03-01] MEDS: MONTELUKAST SODIUM 10 MG TAB PO SCH (22:11)
[2021-03-02] VITALS (8 sets, daily range): BP systolic 121–161; BP diastolic 60–95
[2021-03-02] MEDS: IPRATROPIUM BROM 0.5 MG/2.5ML INH SOL NEB SCH ×6 (03:12→23:10)
[2021-03-02] MEDS: POTASSIUM CHL 20 Meq TABLET PO SCH ×2 (06:00→17:36)
[2021-03-02] MEDS: FUROSEMIDE 20 MG/2 ML VIAL IV SCH ×2 (06:36→17:37)
[2021-03-02] MEDS: methylPREDNISolone SOD SUCC 40 MG/ML VL IV SCH ×3 (06:36→22:00)
[2021-03-02] MEDS: LEVOTHYROXINE SODIUM 100 MCG TAB PO SCH (06:37)
[2021-03-02] MEDS: PANTOPRAZOLE 40 MG/10 ML VIAL INJ IV SCH (10:00)
[2021-03-02] MEDS: ASPirin 81 mg TAB PO SCH (10:00)
[2021-03-02] MEDS: METOPROLOL SUCCINATE XL 50 MG TAB PO SCH (10:00)
[2021-03-02] MEDS: BENAZEPRIL HCL 10 MG TAB PO SCH (10:00)
[2021-03-02] MEDS: hydrOXYchloroQUINE SULFATE 200 MG TAB PO SCH ×2 (10:00→22:00)
[2021-03-02] MEDS: [UNRECOGNIZED DRUG - OTHER] PO SCH ×2 (10:00→22:00)
[2021-03-02] MEDS: ENOXAPARIN SOD 40 MG/0.4 ML SYRINGE SC SCH (10:00)
[2021-03-02] MEDS: BUDESONIDE (INHALATION) 0.5 MG/2 ML NEB NEB SCH ×2 (10:51→20:48)
[2021-03-02] MEDS ORDERED: LIDOCAINE 2%HCL (LOCAL ANESTH.) INJ 20ML MDV ONE (11:41)
[2021-03-02] MEDS ORDERED: IOHEXOL 350 MG/ML 100ML IJ ONE (11:41)
[2021-03-02] MEDS ORDERED: ANGIOMAX 250 MG VIAL IV ONE (11:45)
[2021-03-02] MEDS ORDERED: fentaNYL CITRATE 100 MCG/2 ML VL ONE (11:46)
[2021-03-02] MEDS ORDERED: SODIUM CHL 0.9% 0 ML ONE (11:46)
[2021-03-02] MEDS ORDERED: MIDAZOLAM HCL 2MG/2ML 2ml VIAL (1mg/ml) ONE (11:46)
[2021-03-02] MEDS: HYDROcodone-ACET 5/325MG TAB PO PRN (17:37)
[2021-03-02] MEDS: SODIUM CHLOR 0.9% PF (SALINE LOCK) 10ML VIAL/SYR IV SCH (21:00)
[2021-03-02] MEDS: MONTELUKAST SODIUM 10 MG TAB PO SCH (22:00)
[2021-03-02] MEDS: ATORVASTATIN 20 MG TAB PO SCH (22:00)
[2021-03-03] MEDS: IPRATROPIUM BROM 0.5 MG/2.5ML INH SOL NEB SCH ×4 (03:22→14:15)
[2021-03-03 05:00] VITALS: BP 115/64
[2021-03-03] MEDS: SODIUM CHLOR 0.9% PF (SALINE LOCK) 10ML VIAL/SYR IV SCH ×2 (05:00→14:28)
[2021-03-03] MEDS: POTASSIUM CHL 20 Meq TABLET PO SCH (06:00)
[2021-03-03] MEDS: methylPREDNISolone SOD SUCC 40 MG/ML VL IV SCH ×2 (06:17→14:28)
[2021-03-03] MEDS: LEVOTHYROXINE SODIUM 100 MCG TAB PO SCH (06:18)
[2021-03-03] MEDS: FUROSEMIDE 20 MG/2 ML VIAL IV SCH (06:31)
[2021-03-03 09:00] VITALS: BP 110/59
[2021-03-03] MEDS: BUDESONIDE (INHALATION) 0.5 MG/2 ML NEB NEB SCH (09:54)
[2021-03-03] MEDS: PANTOPRAZOLE 40 MG/10 ML VIAL INJ IV SCH (09:58)
[2021-03-03] MEDS: ASPirin 81 mg TAB PO SCH (10:00)
[2021-03-03] MEDS ORDERED: URSODIOL 300 MG CAP PO SCH (10:00)
[2021-03-03] MEDS: BENAZEPRIL HCL 10 MG TAB PO SCH (10:01)
[2021-03-03] MEDS: hydrOXYchloroQUINE SULFATE 200 MG TAB PO SCH (10:02)
[2021-03-03] MEDS: ENOXAPARIN SOD 40 MG/0.4 ML SYRINGE SC SCH (10:03)
[2021-03-03] MEDS: METOPROLOL SUCCINATE XL 50 MG TAB PO SCH (10:03)
[2021-03-03 13:00] VITALS: BP 137/65
[2021-03-03 15:07] VITALS: BP 137/65
[2021-03-03 16:00] VITALS: BP 132/54
== END 2021-03-03 17:11 | disposition home or self-care (01) | DRG 286 ==
LOC: ER 11:27 → OVERFLOW 17:24 → WEST WING 22:05 → TELE-WESTW 02-28 11:38
PROVIDERS: ADMIT Hospitalist; ATTEND Family Medicine
PROC: 4A023N8 Measurement of Cardiac Sampling and Pressure, Bilateral, Percutaneous Approach (ICD-10-PCS; principal; 2021-03-02)
PROC: B2111ZZ Fluoroscopy of Multiple Coronary Arteries using Low Osmolar Contrast (ICD-10-PCS; 2021-03-02)
PROC: B2151ZZ Fluoroscopy of Left Heart using Low Osmolar Contrast (ICD-10-PCS; 2021-03-02)
DX: I25.10 Atherosclerotic heart disease of native coronary artery without angina pectoris (principal); J18.9 Pneumonia, unspecified organism; J96.21 Acute and chronic respiratory failure with hypoxia; J45.901 Unspecified asthma with (acute) exacerbation; I50.30 Unspecified diastolic (congestive) heart failure; J44.0 Chronic obstructive pulmonary disease with (acute) lower respiratory infection; I11.0 Hypertensive heart disease with heart failure; J20.9 Acute bronchitis, unspecified; I35.0 Nonrheumatic aortic (valve) stenosis; E88.09 Other disorders of plasma-protein metabolism, not elsewhere classified; E66.01 Morbid (severe) obesity due to excess calories; E03.9 Hypothyroidism, unspecified; E78.5 Hyperlipidemia, unspecified; J84.10 Pulmonary fibrosis, unspecified; K75.4 Autoimmune hepatitis; M32.9 Systemic lupus erythematosus, unspecified; K21.9 Gastro-esophageal reflux disease without esophagitis; M34.9 Systemic sclerosis, unspecified; Z20.822 Contact with and (suspected) exposure to COVID-19; Z88.8 Allergy status to other drugs, medicaments and biological substances; Z80.49 Family history of malignant neoplasm of other genital organs; Z82.49 Family history of ischemic heart disease and other diseases of the circulatory system; Z82.5 Family history of asthma and other chronic lower respiratory diseases; Z86.16 Personal history of COVID-19; Z86.711 Personal history of pulmonary embolism; Z86.15 Personal history of latent tuberculosis infection; Z68.37 Body mass index [BMI] 37.0-37.9, adult
CPT/HCPCS: 36415; 36600; 71045; 71250; 72070; 73560; 80048; 80053; 80061; 81001; 82306; 82728; 82805; 83036; 83735; 83880; 84100; 84443; 84484; 84550; 85025; 85379; 85610; 85730; 86141; 86850; 86900; 86901; 87040; 87081; 87086; 87426; 93005; 93460; 94640; 96365; 96372; 96375; 99152; 99153; C1751; C9113; G0378; J0696; J2250

== ENCOUNTER 2021-04-04 12:33 | Inpatient (IN) | payer MEDICAID ==
[~2021-04-04] VITALS: Ht 162.6 cm; Wt 102.3 kg
[~2021-04-04 12:33] MED LIST changes: -ALBUAER3 IN; -ASCO500C49 PO; -ATOR80TA PO; +BUTA-251 PO; -CETI10CH PO; -CHOL10006 PO; -FLUT0.05 NAS; +FLUT1SPR21; +IPRIH INH; -LOS25T GT; +LOSA25TA38 PO; -METO25TA5 PO; -METO25TA93 PO; -MONT5CHW23 PO; -ONDA-155 PO; -PANT40TA2 PO; -SULF500T8 PO; -VENL150T19 PO
[2021-04-04 14:51] LABS: Basophils # (auto) 0 10 ^3/uL (0-0.2); Basophils % (auto) 0.4 % (0.0-2.0); Eosinophils # (auto) 0.1 10 ^3/uL (0-0.8); Hematocrit 38.7 % (36.0-46.0); Hemoglobin 12.9 g/dL (12.2-16.2); Lymphocytes # (auto) 0.9 10 ^3/uL (0.4-5.4); Lymphocytes % (auto) 13.6 % (10.0-50.0); Mean Corpuscular Hemoglobin 27.8 pg (28.0-32.0); Mean Corpuscular Hgb Conc. 33.3 g/dL (32.0-36.0); Mean Corpuscular Volume 83.5 fL (80.0-100.0); Monocytes # (auto) 0.6 10 ^3/uL (0-1.3); Monocytes % (auto) 9.6 % (0.0-12.0); Neutrophils % (auto) 75.4 % (37.0-80.0); Red Blood Cells 4.64 10^6/uL (4.0-5.20); Red Cell Distribution Width 16.1 % (11.8-14.3); White Blood Cell 6.6 10^3/uL (4.4-10.8)
[2021-04-04 15:13] LABS: Calcium 8.2 mg/dL (8.5-10.1)
[2021-04-04 15:20] LABS: BUN/Creatinine Ratio 16.1; Bilirubin, Total 0.4 mg/dL (0.2-1.0); Total Protein 7.2 g/dL (6.4-8.2)
[2021-04-04 16:11] LABS: Potassium 2.8 mmol/L (3.5-5.1)
[2021-04-04] MEDS: POTASSIUM CHL 20MEQ/50ML 50 ML IV SCH ×2 (19:30→21:30)
[2021-04-05] MEDS ORDERED: DexAMETHasone SOD PHOS 10MG/1ML VIAL INJ IV ONE
[2021-04-05] MEDS ORDERED: ONDANSETRON HCL 4 MG/2 ML VIAL IV PRN (05:45)
[2021-04-05] MEDS ORDERED: TEMAZEPAM 15 MG CAP PO PRN (05:45)
[2021-04-05] MEDS ORDERED: MORPHINE SULFATE INJECTION 2 MG/ML SYRG IV PRN (05:45)
[2021-04-05] MEDS ORDERED: ALBUTEROL SULF 2.5 MG/0.5ML(0.5%) NEB SOLN NEB PRN (05:45)
[2021-04-05] MEDS ORDERED: FUROSEMIDE 40 MG/4 ML VIAL IV ONE (05:45)
[2021-04-05] MEDS ORDERED: ACETAMINOPHEN 325 MG TAB PO PRN (05:45)
[2021-04-05] MEDS ORDERED: NITROGLYCERIN 0.4 MG SL TAB SL PRN (05:45)
[2021-04-05] MEDS ORDERED: IOHEXOL 350 MG/ML 100ML IJ ONE (05:56)
[2021-04-05] MEDS: BUDESONIDE (INHALATION) 180 MCG IH IN SCH (06:19)
[2021-04-05] MEDS: cefTRIAXone 1GM/50ML D5W 50 ML IV SCH (06:26)
[2021-04-05] MEDS: LEVOTHYROXINE SODIUM 100 MCG TAB PO SCH (06:32)
[2021-04-05] MEDS: AZITHROMYCIN 500MG/ 250ML 250 ML IV SCH (06:48)
[2021-04-05] MEDS ORDERED: POTASSIUM EFFERVESENT TAB 25 MEQ PO ONE (07:30)
[2021-04-05] MEDS ORDERED: dilTIAZem 125mg/125ml BAG KIT 125 ML IV ONE (08:40)
[2021-04-05] MEDS ORDERED: dilTIAZem 25 MG/5 ML VIAL IV ONE (08:45)
[2021-04-05] MEDS ORDERED: LORazepam 2MG/ML-1ML VIAL IV ONE (08:45)
[2021-04-05] MEDS ORDERED: ADENOSINE 6 MG/2 ML INJ IV ONE (08:45)
[2021-04-05] MEDS ORDERED: dilTIAZem 125mg/125ml BAG KIT 125 ML IV SCH ×2 (08:45→15:00)
[2021-04-05] MEDS ORDERED: POTASSIUM CHL 20MEQ/50ML 50 ML IV ONE (09:00)
[2021-04-05 09:06] LABS: Basophils # (auto) 0.1 10 ^3/uL (0-0.2); Basophils % (auto) 0.7 % (0.0-2.0); Eosinophils # (auto) 0.1 10 ^3/uL (0-0.8); Eosinophils % (auto) 1.9 % (0.0-7.0); Hematocrit 39.9 % (36.0-46.0); Hemoglobin 13.5 g/dL (12.2-16.2); Lymphocytes % (auto) 25.4 % (10.0-50.0); Mean Corpuscular Hemoglobin 28.1 pg (28.0-32.0); Mean Corpuscular Hgb Conc. 33.9 g/dL (32.0-36.0); Monocytes # (auto) 0.8 10 ^3/uL (0-1.3); Monocytes % (auto) 9.9 % (0.0-12.0); Neutrophils # (auto) 4.9 10 ^3/uL (1.6-8.6); Neutrophils % (auto) 62.1 % (37.0-80.0); Nucleated Red Blood Cells % 0.1 %; Red Blood Cells 4.81 10^6/uL (4.0-5.20); Red Cell Distribution Width 16.3 % (11.8-14.3); White Blood Cell 7.8 10^3/uL (4.4-10.8)
[2021-04-05] MEDS: ASPirin 81 mg TAB PO SCH (09:09)
[2021-04-05 09:21] LABS: Albumin 3.2 g/dL (3.4-5.0); BUN/Creatinine Ratio 15.3; Calcium 8.6 mg/dL (8.5-10.1); Potassium 3.3 mmol/L (3.5-5.1)
[2021-04-05 09:25] LABS: Bilirubin, Total 0.5 mg/dL (0.2-1.0); Total Protein 7.9 g/dL (6.4-8.2)
[2021-04-05] MEDS ORDERED: GABAPENTIN 300 MG CAP PO SCH (10:00)
[2021-04-05] MEDS ORDERED: LOSARTAN POTASSIUM 25 MG TAB PO SCH (10:00)
[2021-04-05] MEDS ORDERED: METOPROLOL TARTRATE 25 MG TAB PO SCH (10:00)
[2021-04-05] MEDS ORDERED: AMIODARONE HCL 150 MG in D5W 5% 100 ML IV ONE (10:15)
[2021-04-05] MEDS ORDERED: AMIODARONE 450mg/250ml AE 250 ML IV ONE (10:15)
[2021-04-05] MEDS ORDERED: AMIODARONE 450mg/250ml AE 250 ML IV SCH (10:30)
[2021-04-05] MEDS ORDERED: DIGOXIN (250MCG/ML) 2 ML AMPULE IV ONE (13:00)
[2021-04-05] MEDS: AMIODARONE 450mg/250ml AE 250 ML IV SCH (13:10)
[2021-04-05] MEDS: ASCORBIC ACID 500 MG TAB PO SCH (13:10)
[2021-04-05] MEDS: ENOXAPARIN SOD 40 MG/0.4 ML SYRINGE SC SCH (13:10)
[2021-04-05] MEDS: ZINC SULFATE 220mg CAP or TAB PO SCH (13:10)
[2021-04-05] MEDS: PANTOPRAZOLE 40 MG TAB PO SCH (13:11)
[2021-04-05] MEDS ORDERED: MAGNESIUM SULFATE 1GM/100ML 100 ML IV ONE (13:15)
[2021-04-05] MEDS ORDERED: IPRATROPIUM BROM 0.5 MG/2.5ML INH SOL NEB PRN (13:30)
[2021-04-05] MEDS ORDERED: VANCOMYCIN HCL 125MG/5ML ORAL SOL PO ONE (13:30)
[2021-04-05] MEDS: SODIUM CHLORIDE 0.9% 1,000 ML IV SCH (13:56)
[2021-04-05] MEDS ORDERED: ATORVASTATIN 20 MG TAB PO SCH (22:00)
[2021-04-05] MEDS ORDERED: BUDESONIDE (INHALATION) 0.5 MG/2 ML NEB NEB SCH (22:00)
[2021-04-06] MEDS: MONTELUKAST SODIUM 10 MG TAB PO SCH ×2 (00:09→21:55)
[2021-04-06] MEDS: VANCOMYCIN HCL 125MG/5ML ORAL SOL PO SCH ×3 (00:10→12:31)
[2021-04-06] MEDS: SODIUM CHLORIDE 0.9% 1,000 ML IV SCH (00:10)
[2021-04-06] MEDS: SACUBITRIL-VALSARTAN 24mg/26mg TAB PO SCH ×3 (00:12→21:54)
[2021-04-06] MEDS: ASCORBIC ACID 500 MG TAB PO SCH ×3 (00:13→21:55)
[2021-04-06] MEDS: ALBUTEROL SULF HFA 90MCG INH 200DOSE IN PRN ×2 (06:19→19:20)
[2021-04-06] MEDS: BUDESONIDE (INHALATION) 180 MCG IH IN SCH ×2 (06:19→18:50)
[2021-04-06] MEDS: LEVOTHYROXINE SODIUM 100 MCG TAB PO SCH (06:28)
[2021-04-06 08:12] LABS: Basophils # (auto) 0 10 ^3/uL (0-0.2); Basophils % (auto) 0.5 % (0.0-2.0); Eosinophils # (auto) 0.1 10 ^3/uL (0-0.8); Eosinophils % (auto) 0.9 % (0.0-7.0); Hematocrit 35.6 % (36.0-46.0); Hemoglobin 11.9 g/dL (12.2-16.2); Lymphocytes # (auto) 1.6 10 ^3/uL (0.4-5.4); Lymphocytes % (auto) 22.1 % (10.0-50.0); Mean Corpuscular Hemoglobin 28.3 pg (28.0-32.0); Mean Corpuscular Hgb Conc. 33.5 g/dL (32.0-36.0); Mean Corpuscular Volume 84.5 fL (80.0-100.0); Monocytes # (auto) 1.1 10 ^3/uL (0-1.3); Neutrophils # (auto) 4.6 10 ^3/uL (1.6-8.6); Neutrophils % (auto) 61.5 % (37.0-80.0); Nucleated Red Blood Cells % 0.1 %; Red Blood Cells 4.21 10^6/uL (4.0-5.20); Red Cell Distribution Width 16.4 % (11.8-14.3); White Blood Cell 7.4 10^3/uL (4.4-10.8)
[2021-04-06 08:24] LABS: Potassium 3.9 mmol/L (3.5-5.1)
[2021-04-06] MEDS: AMIODARONE 450mg/250ml AE 250 ML IV SCH (08:25)
[2021-04-06 08:43] LABS: Albumin 2.7 g/dL (3.4-5.0); BUN/Creatinine Ratio 14.3; Bilirubin, Total 0.6 mg/dL (0.2-1.0); Calcium 8.1 mg/dL (8.5-10.1); Magnesium 2.8 mg/dL (1.6-2.6); Total Protein 6.5 g/dL (6.4-8.2)
[2021-04-06] MEDS: cefTRIAXone 1GM/50ML D5W 50 ML IV SCH (09:30)
[2021-04-06] MEDS: ZINC SULFATE 220mg CAP or TAB PO SCH (09:59)
[2021-04-06] MEDS: ASPirin 81 mg TAB PO SCH (09:59)
[2021-04-06] MEDS ORDERED: FUROSEMIDE 40 MG TAB PO SCH (10:00)
[2021-04-06] MEDS: ENOXAPARIN SOD 40 MG/0.4 ML SYRINGE SC SCH ×2 (10:00→21:55)
[2021-04-06] MEDS: PANTOPRAZOLE 40 MG TAB PO SCH (10:00)
[2021-04-06] MEDS: AZITHROMYCIN 500MG/ 250ML 250 ML IV SCH (10:13)
[2021-04-06] MEDS ORDERED: predniSONE 20 MG TAB PO ONE (13:00)
[2021-04-06] MEDS: PHENYLEPHRINE IV 250 ML IV SCH ×2 (13:52→13:55)
[2021-04-06] MEDS ORDERED: POTASSIUM CHL 10 Meq TABLET PO ONE (14:30)
[2021-04-06] MEDS ORDERED: FUROSEMIDE 20 MG/2 ML VIAL IV ONE (14:30)
[2021-04-06] MEDS ORDERED: REMDESIVIR PER PHARMACY 0 ML IV SCH (14:30)
[2021-04-06] MEDS ORDERED: REMDESIVIR 200 MG in NS 210ml LOADING DOSE ADULT IV ONE (17:00)
[2021-04-06] MEDS: AMIODARONE HCL 200 MG TAB PO SCH (21:54)
[2021-04-06 22:00] VITALS: BP 144/78
[2021-04-07] VITALS (7 sets, daily range): BP systolic 113–144; BP diastolic 43–78
[2021-04-07] MEDS ORDERED: ASCO-22 PO (02:25)
[2021-04-07] MEDS ORDERED: SULF500T8 PO (02:29)
[2021-04-07] MEDS ORDERED: ONDA-144 PO (02:34)
[2021-04-07] MEDS: ALBUTEROL SULF HFA 90MCG INH 200DOSE IN PRN ×2 (05:48→20:11)
[2021-04-07] MEDS: BUDESONIDE (INHALATION) 180 MCG IH IN SCH ×2 (05:48→20:11)
[2021-04-07] MEDS: LEVOTHYROXINE SODIUM 100 MCG TAB PO SCH (06:01)
[2021-04-07 07:46] LABS: Albumin 2.8 g/dL (3.4-5.0); Calcium 8.1 mg/dL (8.5-10.1); Magnesium 2.6 mg/dL (1.6-2.6); Potassium 3.5 mmol/L (3.5-5.1)
[2021-04-07 07:50] LABS: BUN/Creatinine Ratio 14.6; Bilirubin, Total 0.4 mg/dL (0.2-1.0); CRP High Sensitivity 0.23 mg/dL (< 0.3); Total Protein 6.7 g/dL (6.4-8.2)
[2021-04-07] MEDS: cefTRIAXone 1GM/50ML D5W 50 ML IV SCH (09:02)
[2021-04-07] MEDS: ASPirin 81 mg TAB PO SCH (09:25)
[2021-04-07] MEDS: AMIODARONE HCL 200 MG TAB PO SCH ×2 (09:25→21:02)
[2021-04-07] MEDS: DexAMETHasone SOD PHOS 10MG/1ML VIAL INJ IV SCH (09:25)
[2021-04-07] MEDS: ZINC SULFATE 220mg CAP or TAB PO SCH (09:25)
[2021-04-07] MEDS: SACUBITRIL-VALSARTAN 24mg/26mg TAB PO SCH ×2 (09:26→21:03)
[2021-04-07] MEDS: PANTOPRAZOLE 40 MG TAB PO SCH (09:26)
[2021-04-07] MEDS: CHOLECALCIFEROL (VITD3) 2,000 UNIT CAP/TAB PO SCH (09:26)
[2021-04-07] MEDS: IVERMECTIN 3 MG TAB PO SCH (09:26)
[2021-04-07] MEDS: ASCORBIC ACID 500 MG TAB PO SCH ×2 (09:26→21:03)
[2021-04-07] MEDS: ENOXAPARIN SOD 40 MG/0.4 ML SYRINGE SC SCH (09:27)
[2021-04-07] MEDS ORDERED: predniSONE 20 MG TAB PO SCH (10:00)
[2021-04-07] MEDS: AZITHROMYCIN 500MG/ 250ML 250 ML IV SCH (10:08)
[2021-04-07] MEDS: REMDESIVIR 100mg 100 MG in SODIUM CHL 0.9% 230 ML IV SCH (16:30)
[2021-04-07] MEDS: APIXABAN 5 MG TAB PO SCH (21:02)
[2021-04-07] MEDS: MONTELUKAST SODIUM 10 MG TAB PO SCH (21:03)
[2021-04-08] VITALS (7 sets, daily range): BP systolic 97–122; BP diastolic 43–71
[2021-04-08] MEDS: LEVOTHYROXINE SODIUM 100 MCG TAB PO SCH (06:12)
[2021-04-08 07:21] LABS: Albumin 2.6 g/dL (3.4-5.0); Calcium 8.1 mg/dL (8.5-10.1); Potassium 3.8 mmol/L (3.5-5.1)
[2021-04-08 07:25] LABS: BUN/Creatinine Ratio 24.4; Bilirubin, Total 0.3 mg/dL (0.2-1.0); Total Protein 6.5 g/dL (6.4-8.2)
[2021-04-08] MEDS: cefTRIAXone 1GM/50ML D5W 50 ML IV SCH (09:13)
[2021-04-08] MEDS: DexAMETHasone SOD PHOS 10MG/1ML VIAL INJ IV SCH (09:14)
[2021-04-08] MEDS: ASPirin 81 mg TAB PO SCH (09:14)
[2021-04-08] MEDS: ZINC SULFATE 220mg CAP or TAB PO SCH (09:15)
[2021-04-08] MEDS: PANTOPRAZOLE 40 MG TAB PO SCH (09:15)
[2021-04-08] MEDS: SACUBITRIL-VALSARTAN 24mg/26mg TAB PO SCH ×2 (09:15→21:32)
[2021-04-08] MEDS: APIXABAN 5 MG TAB PO SCH ×2 (09:15→21:31)
[2021-04-08] MEDS: AMIODARONE HCL 200 MG TAB PO SCH ×2 (09:15→21:31)
[2021-04-08] MEDS: CHOLECALCIFEROL (VITD3) 2,000 UNIT CAP/TAB PO SCH (09:16)
[2021-04-08] MEDS: IVERMECTIN 3 MG TAB PO SCH (09:16)
[2021-04-08] MEDS: ASCORBIC ACID 500 MG TAB PO SCH ×2 (09:16→21:32)
[2021-04-08] MEDS: ALBUTEROL SULF HFA 90MCG INH 200DOSE IN PRN ×2 (09:35→19:14)
[2021-04-08] MEDS: BUDESONIDE (INHALATION) 180 MCG IH IN SCH ×2 (09:35→19:14)
[2021-04-08] MEDS: AZITHROMYCIN 500MG/ 250ML 250 ML IV SCH (10:41)
[2021-04-08] MEDS: REMDESIVIR 100mg 100 MG in SODIUM CHL 0.9% 230 ML IV SCH (13:26)
[2021-04-08] MEDS: MAGNESIUM SULFATE 1GM/100ML 100 ML IV SCH ×2 (17:26→18:09)
[2021-04-08] MEDS: MONTELUKAST SODIUM 10 MG TAB PO SCH (21:32)
[2021-04-09 04:48] VITALS: BP 123/80
[2021-04-09] MEDS: LEVOTHYROXINE SODIUM 100 MCG TAB PO SCH (06:08)
[2021-04-09 06:20] LABS: Potassium 4.1 mmol/L (3.5-5.1)
[2021-04-09 06:30] LABS: Albumin 2.6 g/dL (3.4-5.0); Bilirubin, Total 0.3 mg/dL (0.2-1.0); Calcium 8.1 mg/dL (8.5-10.1)
[2021-04-09] MEDS: BUDESONIDE (INHALATION) 180 MCG IH IN SCH ×2 (07:31→19:40)
[2021-04-09] MEDS: ALBUTEROL SULF HFA 90MCG INH 200DOSE IN PRN ×2 (07:31→19:40)
[2021-04-09] MEDS: DexAMETHasone SOD PHOS 10MG/1ML VIAL INJ IV SCH (09:08)
[2021-04-09] MEDS: cefTRIAXone 1GM/50ML D5W 50 ML IV SCH (09:08)
[2021-04-09] MEDS: ASPirin 81 mg TAB PO SCH (09:11)
[2021-04-09] MEDS: ZINC SULFATE 220mg CAP or TAB PO SCH (09:11)
[2021-04-09] MEDS: IVERMECTIN 3 MG TAB PO SCH (09:12)
[2021-04-09] MEDS: PANTOPRAZOLE 40 MG TAB PO SCH (09:12)
[2021-04-09] MEDS: SACUBITRIL-VALSARTAN 24mg/26mg TAB PO SCH ×2 (09:12→22:45)
[2021-04-09] MEDS: CHOLECALCIFEROL (VITD3) 2,000 UNIT CAP/TAB PO SCH (09:12)
[2021-04-09] MEDS: ASCORBIC ACID 500 MG TAB PO SCH ×2 (09:12→22:45)
[2021-04-09] MEDS: AMIODARONE HCL 200 MG TAB PO SCH ×2 (09:13→22:43)
[2021-04-09] MEDS: APIXABAN 5 MG TAB PO SCH ×2 (09:13→22:44)
[2021-04-09 10:00] VITALS: BP 141/74
[2021-04-09] MEDS: AZITHROMYCIN 500MG/ 250ML 250 ML IV SCH (12:16)
[2021-04-09] MEDS ORDERED: FUROSEMIDE 20 MG/2 ML VIAL IV ONE (12:30)
[2021-04-09 17:00] VITALS: BP 116/83
[2021-04-09] MEDS: REMDESIVIR 100mg 100 MG in SODIUM CHL 0.9% 230 ML IV SCH (17:35)
[2021-04-09] MEDS: CARVEDILOL 3.125 MG TAB PO SCH (22:44)
[2021-04-09] MEDS: MONTELUKAST SODIUM 10 MG TAB PO SCH (22:45)
[2021-04-10] MEDS: ALBUTEROL SULF HFA 90MCG INH 200DOSE IN PRN ×2 (06:06→22:23)
[2021-04-10] MEDS: BUDESONIDE (INHALATION) 180 MCG IH IN SCH ×2 (06:06→22:23)
[2021-04-10] MEDS: LEVOTHYROXINE SODIUM 100 MCG TAB PO SCH (06:26)
[2021-04-10 08:25] LABS: Potassium 4.4 mmol/L (3.5-5.1)
[2021-04-10 08:31] LABS: Albumin 2.7 g/dL (3.4-5.0); BUN/Creatinine Ratio 32.6; Bilirubin, Total 0.4 mg/dL (0.2-1.0); Calcium 8.1 mg/dL (8.5-10.1); Magnesium 3.4 mg/dL (1.6-2.6); Total Protein 6.1 g/dL (6.4-8.2)
[2021-04-10 09:00] VITALS: BP 123/55
[2021-04-10] MEDS: DexAMETHasone SOD PHOS 10MG/1ML VIAL INJ IV SCH (09:53)
[2021-04-10] MEDS: cefTRIAXone 1GM/50ML D5W 50 ML IV SCH (09:53)
[2021-04-10] MEDS: ASPirin 81 mg TAB PO SCH (09:54)
[2021-04-10] MEDS: ZINC SULFATE 220mg CAP or TAB PO SCH (09:55)
[2021-04-10] MEDS: AMIODARONE HCL 200 MG TAB PO SCH (09:55)
[2021-04-10] MEDS: CARVEDILOL 3.125 MG TAB PO SCH (09:56)
[2021-04-10] MEDS: PANTOPRAZOLE 40 MG TAB PO SCH (09:56)
[2021-04-10] MEDS: APIXABAN 5 MG TAB PO SCH (09:56)
[2021-04-10] MEDS: IVERMECTIN 3 MG TAB PO SCH (09:56)
[2021-04-10] MEDS: SACUBITRIL-VALSARTAN 24mg/26mg TAB PO SCH (09:56)
[2021-04-10] MEDS: ASCORBIC ACID 500 MG TAB PO SCH (09:57)
[2021-04-10] MEDS: CHOLECALCIFEROL (VITD3) 2,000 UNIT CAP/TAB PO SCH (09:57)
[2021-04-10] MEDS ORDERED: FUROSEMIDE 20 MG/2 ML VIAL IV SCH (10:00)
[2021-04-10] MEDS: AZITHROMYCIN 500MG/ 250ML 250 ML IV SCH (11:41)
[2021-04-10 13:00] VITALS: BP 105/59
[2021-04-10] MEDS ORDERED: ALBUAER3 IN (14:52)
[2021-04-10] MEDS ORDERED: AMIO200T33 PO (14:52)
[2021-04-10] MEDS ORDERED: DEX4T PO (14:52)
[2021-04-10] MEDS ORDERED: SACU1TAB PO (14:52)
[2021-04-10] MEDS ORDERED: CAR3125T PO (14:52)
[2021-04-10] MEDS ORDERED: ZINC220T6 PO (14:52)
[2021-04-10] MEDS ORDERED: DOXY-286 PO (14:52)
[2021-04-10] MEDS ORDERED: ASCO500T11 PO (14:52)
[2021-04-10] MEDS ORDERED: CHOL20007 PO (14:52)
[2021-04-10] MEDS ORDERED: APIX5TAB PO (14:52)
[2021-04-10] MEDS: REMDESIVIR 100mg 100 MG in SODIUM CHL 0.9% 230 ML IV SCH (14:53)
[2021-04-10 17:00] VITALS: BP 115/63
[2021-04-10 19:46] VITALS: BP 115/63
== END 2021-04-10 20:35 | disposition home health service (06) | DRG 137 ==
LOC: ER 12:33 → TELE 04-05 05:44 → TELE-EAST 04-06 20:24
PROVIDERS: ADMIT Nurse Practitioner; ATTEND Internal Medicine
PROC: XW033E5 Introduction of Remdesivir Anti-infective into Peripheral Vein, Percutaneous Approach, New Technology Group 5 (ICD-10-PCS; principal; 2021-04-06)
DX: U07.1 COVID-19 (principal); J96.21 Acute and chronic respiratory failure with hypoxia; R57.0 Cardiogenic shock; J12.82 Pneumonia due to coronavirus disease 2019; E44.0 Moderate protein-calorie malnutrition; I50.43 Acute on chronic combined systolic (congestive) and diastolic (congestive) heart failure; I42.8 Other cardiomyopathies; D89.839 Cytokine release syndrome, grade unspecified; K75.4 Autoimmune hepatitis; J84.10 Pulmonary fibrosis, unspecified; I48.0 Paroxysmal atrial fibrillation; I21.A1 Myocardial infarction type 2; I47.2 Ventricular tachycardia; E87.6 Hypokalemia; E03.9 Hypothyroidism, unspecified; E55.9 Vitamin D deficiency, unspecified; K21.9 Gastro-esophageal reflux disease without esophagitis; I35.0 Nonrheumatic aortic (valve) stenosis; R19.7 Diarrhea, unspecified; J44.0 Chronic obstructive pulmonary disease with (acute) lower respiratory infection; Z99.81 Dependence on supplemental oxygen; E78.5 Hyperlipidemia, unspecified; Z82.49 Family history of ischemic heart disease and other diseases of the circulatory system; Z80.49 Family history of malignant neoplasm of other genital organs; Z82.5 Family history of asthma and other chronic lower respiratory diseases; Z86.15 Personal history of latent tuberculosis infection; Z86.711 Personal history of pulmonary embolism; Z23 Encounter for immunization
CPT/HCPCS: 36415; 71045; 71046; 71275; 80053; 82306; 82728; 82962; 83605; 83615; 83735; 83880; 84443; 84484; 85025; 85379; 86141; 87045; 87426; 87427; 87493; 93005; 93306; 94640; 96361; 96374; 96375; 97163; G0378; J0153; J0696; J1100; J2405; J7060

== ENCOUNTER 2021-05-11 16:22 | Inpatient (IN) | payer MEDICAID ==
[~2021-05-11] VITALS: Ht 162.6 cm; Wt 97.9 kg
[~2021-05-11 16:22] MED LIST changes: +ALBUAER3 IN; +AMIO200T33 PO; +APIX5TAB PO; +ASCO500T11 PO; +CAR3125T PO; +CHOL20007 PO; +DEX4T PO; +DOXY-286 PO; -LOSA25TA38 PO; -MET25T PO; +ONDA-144 PO; -PRED20TA2 PO; +SACU1TAB PO; +SULF500T8 PO; +ZINC220T6 PO
[2021-05-11] MEDS ORDERED: LORazepam 2MG/ML-1ML VIAL IV ONE (16:45)
[2021-05-11] MEDS ORDERED: ASPirin 81 mg TAB PO ONE (16:45)
[2021-05-11 18:07] LABS: Basophils # (auto) 0.1 10 ^3/uL (0-0.2); Basophils % (auto) 1.7 % (0.0-2.0); Eosinophils # (auto) 0.4 10 ^3/uL (0-0.8); Eosinophils % (auto) 5.8 % (0.0-7.0); Hematocrit 38.7 % (36.0-46.0); Hemoglobin 12.8 g/dL (12.2-16.2); Lymphocytes # (auto) 1.1 10 ^3/uL (0.4-5.4); Lymphocytes % (auto) 16.6 % (10.0-50.0); Mean Corpuscular Hemoglobin 28.7 pg (28.0-32.0); Mean Corpuscular Hgb Conc. 33.1 g/dL (32.0-36.0); Mean Corpuscular Volume 86.7 fL (80.0-100.0); Monocytes # (auto) 0.6 10 ^3/uL (0-1.3); Neutrophils # (auto) 4.2 10 ^3/uL (1.6-8.6); Neutrophils % (auto) 65.9 % (37.0-80.0); Nucleated Red Blood Cells % 0.1 %; Red Blood Cells 4.46 10^6/uL (4.0-5.20); Red Cell Distribution Width 17.7 % (11.8-14.3); White Blood Cell 6.4 10^3/uL (4.4-10.8)
[2021-05-11 18:24] LABS: Albumin 3.3 g/dL (3.4-5.0); Calcium 8.6 mg/dL (8.5-10.1); Magnesium 2.5 mg/dL (1.6-2.6)
[2021-05-11 18:30] LABS: BUN/Creatinine Ratio 11.7; Bilirubin, Total 0.4 mg/dL (0.2-1.0); Total Protein 7.2 g/dL (6.4-8.2)
[2021-05-11 18:48] LABS: Urine Bacteria FEW /hpf (None Seen); Urine Blood 1+ /uL (Negative); Urine Budding Yeast FEW /hpf (None Seen); Urine Mucus FEW (None Seen); Urine Specific Gravity 1.036 (1.001-1.035); Urine WBC 10 /hpf (0 - 5)
[2021-05-11] MEDS ORDERED: IPRATROPIUM BROM 0.5 MG/2.5ML INH SOL NEB ONE (22:30)
[2021-05-11] MEDS ORDERED: ALBUTEROL SULF 2.5 MG/0.5ML(0.5%) NEB SOLN NEB ONE (22:30)
[2021-05-11] MEDS ORDERED: DexAMETHasone SOD PHOS 10MG/1ML VIAL INJ IV ONE (22:30)
[2021-05-11] MEDS ORDERED: NITROGLYCERIN 0.4 MG SL TAB SL PRN (23:15)
[2021-05-11] MEDS ORDERED: MORPHINE SULFATE INJECTION 2 MG/ML SYRG IV PRN (23:15)
[2021-05-11] MEDS ORDERED: ACETAMINOPHEN 325 MG TAB PO PRN (23:15)
[2021-05-11] MEDS ORDERED: hydrALAZINE HCL 10 MG TAB PO PRN (23:15)
[2021-05-11] MEDS ORDERED: ONDANSETRON HCL 4 MG/2 ML VIAL IV PRN (23:15)
[2021-05-11] MEDS ORDERED: FUROSEMIDE 40 MG/4 ML VIAL IV ONE (23:15)
[2021-05-12] MEDS: ENOXAPARIN SOD 40 MG/0.4 ML SYRINGE SC SCH ×2 (00:30→09:21)
[2021-05-12 06:05] LABS: Basophils # (auto) 0 10 ^3/uL (0-0.2); Basophils % (auto) 1.2 % (0.0-2.0); Eosinophils # (auto) 0 10 ^3/uL (0-0.8); Eosinophils % (auto) 0.2 % (0.0-7.0); Hematocrit 38.6 % (36.0-46.0); Hemoglobin 12.8 g/dL (12.2-16.2); Lymphocytes # (auto) 0.7 10 ^3/uL (0.4-5.4); Lymphocytes % (auto) 18.5 % (10.0-50.0); Mean Corpuscular Hemoglobin 28.9 pg (28.0-32.0); Mean Corpuscular Hgb Conc. 33.1 g/dL (32.0-36.0); Mean Corpuscular Volume 87.3 fL (80.0-100.0); Monocytes # (auto) 0.1 10 ^3/uL (0-1.3); Monocytes % (auto) 1.7 % (0.0-12.0); Neutrophils # (auto) 2.9 10 ^3/uL (1.6-8.6); Neutrophils % (auto) 78.4 % (37.0-80.0); Red Blood Cells 4.42 10^6/uL (4.0-5.20); Red Cell Distribution Width 17.4 % (11.8-14.3); White Blood Cell 3.6 10^3/uL (4.4-10.8)
[2021-05-12 06:14] LABS: Albumin 3.3 g/dL (3.4-5.0); Calcium 8.4 mg/dL (8.5-10.1); Magnesium 2.4 mg/dL (1.6-2.6)
[2021-05-12 06:24] LABS: Bilirubin, Total 0.3 mg/dL (0.2-1.0); Total Protein 7.7 g/dL (6.4-8.2)
[2021-05-12 08:04] LABS: BUN/Creatinine Ratio 12.5
[2021-05-12] MEDS: LEVOTHYROXINE SODIUM 100 MCG TAB PO SCH ×3 (08:27→18:44)
[2021-05-12] MEDS: FAMOTIDINE 20 MG TAB PO SCH (09:21)
[2021-05-12] MEDS: GABAPENTIN 300 MG CAP PO SCH (09:21)
[2021-05-12] MEDS: CARVEDILOL 3.125 MG TAB PO SCH ×2 (09:21→22:02)
[2021-05-12] MEDS: ASPirin-EC 81 mg tab PO SCH (09:21)
[2021-05-12] MEDS ORDERED: IOHEXOL 350 MG/ML 100ML IJ ONE (12:15)
[2021-05-12] MEDS: HYDROcodone-ACET 5/325MG TAB PO PRN ×2 (15:02→22:03)
[2021-05-12 15:09] VITALS: BP 117/54
[2021-05-12 17:00] VITALS: BP_SYST 117; BP_SYST 135; BP_DIAS 45; BP_DIAS 54
[2021-05-12] MEDS: FUROSEMIDE 40 MG/4 ML VIAL IV SCH (18:45)
[2021-05-12 22:00] VITALS: BP 122/65
[2021-05-12] MEDS ORDERED: ATORVASTATIN 20 MG TAB PO SCH (22:00)
[2021-05-13] MEDS ORDERED: ACETAMINOPHEN 325 MG TAB PO PRN ×3 (00:45→07:00)
[2021-05-13 04:33] VITALS: BP 126/68
[2021-05-13] MEDS: LEVOTHYROXINE SODIUM 100 MCG TAB PO SCH ×2 (06:38→11:30)
[2021-05-13] MEDS: FUROSEMIDE 40 MG/4 ML VIAL IV SCH (06:39)
[2021-05-13 09:00] VITALS: BP 100/58
[2021-05-13] MEDS: CARVEDILOL 3.125 MG TAB PO SCH (09:43)
[2021-05-13] MEDS: ASPirin-EC 81 mg tab PO SCH (09:43)
[2021-05-13] MEDS: FAMOTIDINE 20 MG TAB PO SCH (09:43)
[2021-05-13] MEDS: GABAPENTIN 300 MG CAP PO SCH (09:43)
[2021-05-13] MEDS: ENOXAPARIN SOD 40 MG/0.4 ML SYRINGE SC SCH (09:44)
[2021-05-13] MEDS ORDERED: FURO20TA3 PO (13:42)
[2021-05-13] MEDS ORDERED: SACU1TAB PO (13:42)
[2021-05-13] MEDS ORDERED: CAR3125T PO (13:42)
[2021-05-13] MEDS: HYDROcodone-ACET 5/325MG TAB PO PRN (15:53)
== END 2021-05-13 16:01 | disposition home or self-care (01) | DRG 194 ==
LOC: ER 16:25 → WEST WING 23:13 → OVERFLOW 23:58 → CENTRAL 05-12 13:11 → TELE-CENTR 05-12 18:01
PROVIDERS: ADMIT Nurse Practitioner Family; ATTEND Nurse Practitioner Family
DX: I11.0 Hypertensive heart disease with heart failure (principal); I42.8 Other cardiomyopathies; J84.10 Pulmonary fibrosis, unspecified; R07.89 Other chest pain; I50.43 Acute on chronic combined systolic (congestive) and diastolic (congestive) heart failure; E78.5 Hyperlipidemia, unspecified; I44.7 Left bundle-branch block, unspecified; Z20.822 Contact with and (suspected) exposure to COVID-19; K74.60 Unspecified cirrhosis of liver; K21.9 Gastro-esophageal reflux disease without esophagitis; R79.89 Other specified abnormal findings of blood chemistry; Z79.01 Long term (current) use of anticoagulants; Z79.899 Other long term (current) drug therapy; Z80.49 Family history of malignant neoplasm of other genital organs; Z82.49 Family history of ischemic heart disease and other diseases of the circulatory system; Z82.5 Family history of asthma and other chronic lower respiratory diseases; Z86.16 Personal history of COVID-19; Z88.8 Allergy status to other drugs, medicaments and biological substances
CPT/HCPCS: 36415; 71045; 71275; 72040; 73030; 80053; 80061; 81001; 82140; 83735; 83880; 84484; 85025; 85379; 87426; 93005; 94640; 96374; 96375; G0378; J1100; J2405

== ENCOUNTER 2021-05-30 09:30 | Inpatient (IN) | payer MEDICAID ==
[~2021-05-30] VITALS: Ht 162.6 cm; Wt 103.6 kg
[~2021-05-30 09:30] MED LIST changes: -AMIO200T33 PO; -ASCO500T11 PO; -CHOL20007 PO; -DEX4T PO; -DOXY-286 PO; -SULF500T8 PO; -ZINC220T6 PO
[2021-05-30 10:52] LABS: Calcium 8.6 mg/dL (8.5-10.1); Potassium 3.2 mmol/L (3.5-5.1)
[2021-05-30 10:57] LABS: BUN/Creatinine Ratio 20.8; Bilirubin, Total 0.8 mg/dL (0.2-1.0); Total Protein 7.7 g/dL (6.4-8.2)
[2021-05-30 10:58] LABS: Urine Bacteria NONE SEEN /hpf (None Seen); Urine Blood TRACE /uL (Negative); Urine Mucus FEW (None Seen); Urine Specific Gravity 1.034 (1.001-1.035); Urine WBC 27 /hpf (0 - 5)
[2021-05-30] MEDS ORDERED: SODIUM CHLORIDE 0.9% 1,000 ML IV ONE (11:00)
[2021-05-30] MEDS ORDERED: POTASSIUM EFFERVESENT TAB 25 MEQ PO ONE (11:15)
[2021-05-30 11:55] LABS: INR 1.11 (0.9-1.15); Partial Thromboplastin Time 28.2 sec (23.6-33.0)
[2021-05-30 12:23] LABS: Basophils # (auto) 0.1 10 ^3/uL (0-0.2); Basophils % (auto) 1.4 % (0.0-2.0); Eosinophils # (auto) 0.7 10 ^3/uL (0-0.8); Eosinophils % (auto) 8.5 % (0.0-7.0); Hematocrit 38.9 % (36.0-46.0); Hemoglobin 12.9 g/dL (12.2-16.2); Lymphocytes # (auto) 1.5 10 ^3/uL (0.4-5.4); Mean Corpuscular Hemoglobin 28.5 pg (28.0-32.0); Mean Corpuscular Hgb Conc. 33.2 g/dL (32.0-36.0); Mean Corpuscular Volume 85.7 fL (80.0-100.0); Monocytes % (auto) 13.3 % (0.0-12.0); Neutrophils # (auto) 4.5 10 ^3/uL (1.6-8.6); Neutrophils % (auto) 57.8 % (37.0-80.0); Nucleated Red Blood Cells % 0.1 %; Red Blood Cells 4.54 10^6/uL (4.0-5.20); Red Cell Distribution Width 16.1 % (11.8-14.3); White Blood Cell 7.8 10^3/uL (4.4-10.8)
[2021-05-30] MEDS ORDERED: AZITHROMYCIN 500MG/ 250ML 250 ML IV ONE (13:00)
[2021-05-30] MEDS ORDERED: cefTRIAXone 1GM/50ML D5W 50 ML IV ONE (13:00)
[2021-05-30] MEDS ORDERED: HYDROmorphone HCL 2 MG/ML VL IV ONE (13:15)
[2021-05-30] MEDS ORDERED: ONDANSETRON HCL 4 MG/2 ML VIAL IV ONE (13:15)
[2021-05-30] MEDS ORDERED: NITROGLYCERIN 0.4 MG SL TAB SL PRN (15:30)
[2021-05-30] MEDS ORDERED: MORPHINE SULFATE INJECTION 2 MG/ML SYRG IV PRN (15:30)
[2021-05-30] MEDS: DOXYCYCLINE 100MG/250ML 250 ML IV SCH (16:18)
[2021-05-30] MEDS: ACETAMINOPHEN 325 MG TAB PO PRN (16:55)
[2021-05-30 18:50] VITALS: BP 105/65
[2021-05-30 20:00] VITALS: BP 115/65
[2021-05-30] MEDS ORDERED: LORazepam 2MG/ML-1ML VIAL IV PRN (20:30)
[2021-05-30 22:00] VITALS: BP 115/65
[2021-05-30] MEDS ORDERED: ATORVASTATIN 20 MG TAB PO SCH (22:00)
[2021-05-30] MEDS: MORPHINE SULFATE 4 MG/ML SYR/VIAL IV PRN (22:32)
[2021-05-31] VITALS (7 sets, daily range): BP systolic 101–115; BP diastolic 57–70
[2021-05-31] MEDS: ACETAMINOPHEN 325 MG TAB PO PRN ×3 (00:57→22:32)
[2021-05-31] MEDS: DOXYCYCLINE 100MG/250ML 250 ML IV SCH ×2 (03:11→16:06)
[2021-05-31] MEDS: ONDANSETRON HCL 4 MG/2 ML VIAL IV PRN (03:21)
[2021-05-31] MEDS: MORPHINE SULFATE 4 MG/ML SYR/VIAL IV PRN ×4 (03:22→21:24)
[2021-05-31 06:04] LABS: Basophils # (auto) 0.1 10 ^3/uL (0-0.2); Basophils % (auto) 1.3 % (0.0-2.0); Eosinophils # (auto) 0.9 10 ^3/uL (0-0.8); Eosinophils % (auto) 12.9 % (0.0-7.0); Hematocrit 36.1 % (36.0-46.0); Hemoglobin 12.3 g/dL (12.2-16.2); Lymphocytes % (auto) 27.4 % (10.0-50.0); Mean Corpuscular Hemoglobin 29.3 pg (28.0-32.0); Mean Corpuscular Hgb Conc. 33.9 g/dL (32.0-36.0); Mean Corpuscular Volume 86.3 fL (80.0-100.0); Monocytes # (auto) 1.1 10 ^3/uL (0-1.3); Monocytes % (auto) 14.8 % (0.0-12.0); Neutrophils # (auto) 3.1 10 ^3/uL (1.6-8.6); Neutrophils % (auto) 43.6 % (37.0-80.0); Red Blood Cells 4.19 10^6/uL (4.0-5.20); White Blood Cell 7.2 10^3/uL (4.4-10.8)
[2021-05-31 06:33] LABS: Albumin 2.8 g/dL (3.4-5.0); BUN/Creatinine Ratio 20.6; Calcium 8.8 mg/dL (8.5-10.1)
[2021-05-31 06:36] LABS: Bilirubin, Total 0.6 mg/dL (0.2-1.0); Total Protein 7.2 g/dL (6.4-8.2)
[2021-05-31] MEDS: ASPirin 81 mg TAB PO SCH (10:44)
[2021-05-31] MEDS: ENOXAPARIN SOD 30 MG/0.3 ML SYRINGE SC SCH (10:44)
[2021-06-01] MEDS: DOXYCYCLINE 100MG/250ML 250 ML IV SCH ×2 (03:27→15:13)
[2021-06-01 05:06] VITALS: BP 114/66
[2021-06-01 05:41] LABS: Albumin 2.4 g/dL (3.4-5.0); Calcium 8.4 mg/dL (8.5-10.1); Potassium 3.9 mmol/L (3.5-5.1)
[2021-06-01 05:43] LABS: BUN/Creatinine Ratio 24.6
[2021-06-01 05:45] LABS: Bilirubin, Total 0.4 mg/dL (0.2-1.0); Total Protein 6.5 g/dL (6.4-8.2)
[2021-06-01 08:00] VITALS: BP 112/58
[2021-06-01] MEDS: ASPirin 81 mg TAB PO SCH (10:00)
[2021-06-01] MEDS: ENOXAPARIN SOD 30 MG/0.3 ML SYRINGE SC SCH (11:49)
[2021-06-01 12:00] VITALS: BP 125/64
[2021-06-01] MEDS: ONDANSETRON HCL 4 MG/2 ML VIAL IV PRN ×2 (14:04→20:33)
[2021-06-01] MEDS: MORPHINE SULFATE 4 MG/ML SYR/VIAL IV PRN (14:05)
[2021-06-01] MEDS ORDERED: PANTOPRAZOLE 40 MG TAB PO ONE (14:30)
[2021-06-01] MEDS: ACETAMINOPHEN 325 MG TAB PO PRN ×2 (15:28→22:47)
[2021-06-01 16:00] VITALS: BP 121/49
[2021-06-01 20:00] VITALS: BP 112/58
[2021-06-01 21:32] VITALS: BP 129/48
[2021-06-02] MEDS: DOXYCYCLINE 100MG/250ML 250 ML IV SCH ×2 (03:51→15:30)
[2021-06-02 05:00] VITALS: BP 122/57
[2021-06-02 06:03] LABS: Basophils # (auto) 0.1 10 ^3/uL (0-0.2); Basophils % (auto) 1.1 % (0.0-2.0); Eosinophils # (auto) 0.6 10 ^3/uL (0-0.8); Eosinophils % (auto) 10.8 % (0.0-7.0); Hematocrit 32.9 % (36.0-46.0); Hemoglobin 11.2 g/dL (12.2-16.2); Lymphocytes # (auto) 1.3 10 ^3/uL (0.4-5.4); Mean Corpuscular Hemoglobin 29.4 pg (28.0-32.0); Mean Corpuscular Hgb Conc. 34.1 g/dL (32.0-36.0); Mean Corpuscular Volume 86.2 fL (80.0-100.0); Monocytes # (auto) 0.9 10 ^3/uL (0-1.3); Neutrophils # (auto) 2.9 10 ^3/uL (1.6-8.6); Neutrophils % (auto) 50.1 % (37.0-80.0); Nucleated Red Blood Cells % 0.1 %; Red Blood Cells 3.82 10^6/uL (4.0-5.20); White Blood Cell 5.8 10^3/uL (4.4-10.8)
[2021-06-02 06:09] LABS: Albumin 2.5 g/dL (3.4-5.0); Calcium 8.7 mg/dL (8.5-10.1); Magnesium 2.1 mg/dL (1.6-2.6); Potassium 4.2 mmol/L (3.5-5.1)
[2021-06-02 06:11] LABS: BUN/Creatinine Ratio 29.6
[2021-06-02 06:13] LABS: Bilirubin, Total 0.4 mg/dL (0.2-1.0); Total Protein 6.7 g/dL (6.4-8.2)
[2021-06-02] MEDS: ASPirin 81 mg TAB PO SCH (08:22)
[2021-06-02] MEDS: ENOXAPARIN SOD 30 MG/0.3 ML SYRINGE SC SCH (08:23)
[2021-06-02] MEDS: ONDANSETRON HCL 4 MG/2 ML VIAL IV PRN (08:23)
[2021-06-02] MEDS: ACETAMINOPHEN 325 MG TAB PO PRN (08:23)
[2021-06-02 09:00] VITALS: BP 141/60
[2021-06-02] MEDS ORDERED: PANTOPRAZOLE 40 MG TAB PO SCH (10:00)
[2021-06-02] MEDS ORDERED: DOXY-286 PO (10:29)
[2021-06-02 11:32] VITALS: BP 141/60
[2021-06-02] MEDS ORDERED: ONDA-144 PO (12:00)
[2021-06-02 13:00] VITALS: BP 122/72
[2021-06-03] MEDS ORDERED: ENOXAPARIN SOD 40 MG/0.4 ML SYRINGE SC SCH (10:00)
[2021-06-04 13:30] LABS: Hepatitis B Surface Antibody Negative (Negative)
[2021-06-04 14:00] LABS: Hepatitis A Total Antibody Positive (Negative)
[2021-06-04 15:09] LABS: Hepatitis C Antibody Negative (Negative)
== END 2021-06-02 16:09 | disposition home health service (06) | DRG 133 ==
LOC: EDBD 09:30 → EDUNIT# 09:30 → ER 09:30 → TELE 15:24 → TELE-WESTW 17:30
PROVIDERS: ADMIT Internal Medicine; ATTEND Internal Medicine
DX: J96.21 Acute and chronic respiratory failure with hypoxia (principal); E44.0 Moderate protein-calorie malnutrition; I50.9 Heart failure, unspecified; J84.10 Pulmonary fibrosis, unspecified; I11.0 Hypertensive heart disease with heart failure; R20.0 Anesthesia of skin; E87.6 Hypokalemia; M47.812 Spondylosis without myelopathy or radiculopathy, cervical region; R91.8 Other nonspecific abnormal finding of lung field; E03.9 Hypothyroidism, unspecified; E11.9 Type 2 diabetes mellitus without complications; E66.9 Obesity, unspecified; Z68.37 Body mass index [BMI] 37.0-37.9, adult; E78.5 Hyperlipidemia, unspecified; F41.1 Generalized anxiety disorder; I35.0 Nonrheumatic aortic (valve) stenosis; M25.511 Pain in right shoulder; M25.512 Pain in left shoulder; K21.9 Gastro-esophageal reflux disease without esophagitis; R51.9 Headache, unspecified; R79.89 Other specified abnormal findings of blood chemistry; R20.2 Paresthesia of skin; M54.2 Cervicalgia; Z20.822 Contact with and (suspected) exposure to COVID-19; Z79.82 Long term (current) use of aspirin; Z79.899 Other long term (current) drug therapy; Z80.49 Family history of malignant neoplasm of other genital organs; Z82.49 Family history of ischemic heart disease and other diseases of the circulatory system; Z82.5 Family history of asthma and other chronic lower respiratory diseases; Z90.01 Acquired absence of eye; Z95.2 Presence of prosthetic heart valve; Z97.0 Presence of artificial eye
CPT/HCPCS: 36415; 70450; 70551; 71045; 71250; 72125; 76705; 80053; 81001; 83605; 83690; 83735; 83880; 84443; 84484; 85025; 85610; 85730; 86038; 86664; 86704; 86706; 86708; 86803; 87040; 87340; 87426; 93005; 93306; 93886; 96361; 96365; 96367; 96375; 97163; G0378; J0696; J2405; J3490

== ENCOUNTER 2021-07-06 12:55 | Inpatient (IN) | payer MEDICAID ==
[~2021-07-06] VITALS: Ht 162.6 cm; Wt 88.0 kg
[~2021-07-06 12:55] MED LIST changes: -ATOR-47 PO; +DOXY-286 PO
[2021-07-06] MEDS ORDERED: ASPirin 325 MG TAB PO ONE (13:30)
[2021-07-06 14:17] LABS: Basophils # (auto) 0.1 10 ^3/uL (0-0.2); Basophils % (auto) 0.8 % (0.0-2.0); Eosinophils # (auto) 0.4 10 ^3/uL (0-0.8); Eosinophils % (auto) 3.3 % (0.0-7.0); Hematocrit 36.6 % (36.0-46.0); Hemoglobin 12.2 g/dL (12.2-16.2); Lymphocytes # (auto) 1.6 10 ^3/uL (0.4-5.4); Lymphocytes % (auto) 14.6 % (10.0-50.0); Mean Corpuscular Hemoglobin 28.7 pg (28.0-32.0); Mean Corpuscular Hgb Conc. 33.4 g/dL (32.0-36.0); Mean Corpuscular Volume 85.8 fL (80.0-100.0); Monocytes # (auto) 1.2 10 ^3/uL (0-1.3); Neutrophils # (auto) 7.6 10 ^3/uL (1.6-8.6); Neutrophils % (auto) 70.3 % (37.0-80.0); Nucleated Red Blood Cells % 0.3 %; Red Blood Cells 4.27 10^6/uL (4.0-5.20); Red Cell Distribution Width 14.9 % (11.8-14.3); White Blood Cell 10.8 10^3/uL (4.4-10.8)
[2021-07-06 14:50] LABS: Calcium 8.8 mg/dL (8.5-10.1); Potassium 3.7 mmol/L (3.5-5.1)
[2021-07-06 14:55] LABS: Albumin 2.9 g/dL (3.4-5.0); BUN/Creatinine Ratio 22.4; Bilirubin, Total 0.7 mg/dL (0.2-1.0); Magnesium 2.1 mg/dL (1.6-2.6); Total Protein 8.3 g/dL (6.4-8.2)
[2021-07-06 15:43] LABS: Urine Bacteria FEW /hpf (None Seen); Urine Blood Negative /uL (Negative); Urine Specific Gravity 1.007 (1.001-1.035); Urine WBC <1 /hpf (0 - 5)
[2021-07-06] MEDS ORDERED: NITROGLYCERIN 0.4 MG SL TAB SL PRN (18:30)
[2021-07-06] MEDS ORDERED: ONDANSETRON HCL 4 MG/2 ML VIAL IV PRN (18:30)
[2021-07-06] MEDS ORDERED: hydrALAZINE HCL 20 MG/ML VL IV PRN (18:30)
[2021-07-06] MEDS ORDERED: DOCUSATE SOD 100 MG CAP PO PRN (18:30)
[2021-07-06] MEDS ORDERED: HYDROcodone-ACET 5/325MG TAB PO PRN (18:30)
[2021-07-06] MEDS ORDERED: ACETAMINOPHEN 325 MG TAB PO PRN (18:30)
[2021-07-06] MEDS ORDERED: MORPHINE SULFATE INJECTION 2 MG/ML SYRG IV PRN (18:30)
[2021-07-06] MEDS: ENOXAPARIN SOD 100 MG/1 ML SYRINGE SC SCH (18:58)
[2021-07-06] MEDS ORDERED: ATORVASTATIN 20 MG TAB PO SCH (22:00)
[2021-07-06] MEDS ORDERED: INFLUENZA QUAD 2021-2022 0.5 ML SYRG IM ONE (22:45)
[2021-07-06 22:52] VITALS: BP 86/63
[2021-07-06 22:53] VITALS: BP 92/61
[2021-07-06 22:54] VITALS: BP 89/62
[2021-07-07 00:58] VITALS: BP 92/61
[2021-07-07 04:17] VITALS: BP 102/64
[2021-07-07 05:06] LABS: Basophils # (auto) 0.1 10 ^3/uL (0-0.2); Basophils % (auto) 0.9 % (0.0-2.0); Eosinophils # (auto) 0.5 10 ^3/uL (0-0.8); Eosinophils % (auto) 5.9 % (0.0-7.0); Hematocrit 35.2 % (36.0-46.0); Hemoglobin 11.9 g/dL (12.2-16.2); Lymphocytes # (auto) 1.9 10 ^3/uL (0.4-5.4); Lymphocytes % (auto) 23.2 % (10.0-50.0); Mean Corpuscular Hemoglobin 29.6 pg (28.0-32.0); Mean Corpuscular Volume 87.3 fL (80.0-100.0); Monocytes # (auto) 1.1 10 ^3/uL (0-1.3); Monocytes % (auto) 13.5 % (0.0-12.0); Neutrophils # (auto) 4.7 10 ^3/uL (1.6-8.6); Neutrophils % (auto) 56.5 % (37.0-80.0); Nucleated Red Blood Cells % 0.1 %; Red Blood Cells 4.03 10^6/uL (4.0-5.20); Red Cell Distribution Width 14.8 % (11.8-14.3); White Blood Cell 8.4 10^3/uL (4.4-10.8)
[2021-07-07 05:42] LABS: Potassium 3.9 mmol/L (3.5-5.1)
[2021-07-07 05:45] LABS: BUN/Creatinine Ratio 27.3; Calcium 8.7 mg/dL (8.5-10.1)
[2021-07-07] MEDS: ENOXAPARIN SOD 100 MG/1 ML SYRINGE SC SCH (06:25)
[2021-07-07 09:12] VITALS: BP 97/65
[2021-07-07] MEDS ORDERED: INFLUENZA QUAD 2021-2022 0.5 ML SYRG IM ONE (10:00)
[2021-07-07] MEDS ORDERED: ASPirin 81 mg TAB PO SCH (10:00)
[2021-07-07 13:00] VITALS: BP 117/78
[2021-07-07] MEDS ORDERED: APIX2.5T PO (14:41)
[2021-07-07] MEDS ORDERED: ALBUTEROL SULF HFA 90MCG INH 200DOSE IN PRN (15:15)
[2021-07-07 15:57] VITALS: BP 121/77
[2021-07-07 17:00] VITALS: BP 115/67
[2021-07-07] MEDS ORDERED: MONTELUKAST SODIUM 10 MG TAB PO SCH (22:00)
[2021-07-07] MEDS ORDERED: APIXABAN 2.5 MG TAB PO SCH (22:00)
[2021-07-08] MEDS ORDERED: LEVOTHYROXINE SODIUM 100 MCG TAB PO SCH (07:00)
[2021-07-08] MEDS ORDERED: ASPirin-EC 81 mg tab PO SCH (10:00)
[2021-07-09 13:26] LABS: Hepatitis A Ab IgM Negative; Hepatitis B Core IgM Negative; Hepatitis C Antibody Negative (Negative)
== END 2021-07-07 17:30 | disposition home or self-care (01) | DRG 198 ==
LOC: ER 12:55 → TELE 18:23 → TELE-CENTR 21:35
PROVIDERS: ADMIT Internal Medicine; ATTEND Internal Medicine
DX: I24.9 Acute ischemic heart disease, unspecified (principal); I27.20 Pulmonary hypertension, unspecified; I50.9 Heart failure, unspecified; I11.0 Hypertensive heart disease with heart failure; E66.01 Morbid (severe) obesity due to excess calories; E78.5 Hyperlipidemia, unspecified; K21.9 Gastro-esophageal reflux disease without esophagitis; R79.89 Other specified abnormal findings of blood chemistry; R74.01 Elevation of levels of liver transaminase levels; Z20.822 Contact with and (suspected) exposure to COVID-19; Z68.33 Body mass index [BMI] 33.0-33.9, adult; Z88.8 Allergy status to other drugs, medicaments and biological substances; Z80.9 Family history of malignant neoplasm, unspecified; Z95.2 Presence of prosthetic heart valve
CPT/HCPCS: 36415; 71045; 76705; 80048; 80053; 80074; 81001; 83735; 84484; 85025; 87081; 93005; 93306; 96372; G0378

== ENCOUNTER 2021-09-17 14:00 | Inpatient (IN) | payer MEDICAID ==
[~2021-09-17] VITALS: Ht 162.6 cm; Wt 89.7 kg
[~2021-09-17 14:00] MED LIST changes: +APIX2.5T PO; -APIX5TAB PO; -BUSP5TAB51 PO; -BUTA-251 PO; -CAR3125T PO; -DOXY-286 PO; -FERR-20 PO; -FURO20TA3 PO; -GABA300C10 PO; -ONDA-144 PO; -PANT40T PO; -SACU1TAB PO
[2021-09-17] MEDS ORDERED: ALBUTEROL SULF 2.5 MG/0.5ML(0.5%) NEB SOLN HHN ONE (14:30)
[2021-09-17] MEDS ORDERED: IPRATROPIUM BROM 0.5 MG/2.5ML INH SOL HHN ONE (14:30)
[2021-09-17] MEDS ORDERED: methylPREDNISolone SOD SUCC 125 MG/2 ML VL IV ONE (14:30)
[2021-09-17 14:54] LABS: Basophils # (auto) 0.1 10 ^3/uL (0-0.2); Hematocrit 28.5 % (36.0-46.0); Hemoglobin 9.2 g/dL (12.2-16.2); Lymphocytes # (auto) 1.6 10 ^3/uL (0.4-5.4); Monocytes # (auto) 0.8 10 ^3/uL (0-1.3)
[2021-09-17 14:56] LABS: Basophils % (auto) 0.8 % (0.0-2.0); Eosinophils # (auto) 0.3 10 ^3/uL (0-0.8); Eosinophils % (auto) 4.3 % (0.0-7.0); Lymphocytes % (auto) 19.4 % (10.0-50.0); Mean Corpuscular Hemoglobin 24.9 pg (28.0-32.0); Mean Corpuscular Hgb Conc. 32.2 g/dL (32.0-36.0); Mean Corpuscular Volume 77.4 fL (80.0-100.0); Neutrophils # (auto) 5.3 10 ^3/uL (1.6-8.6); Neutrophils % (auto) 65.5 % (37.0-80.0); Nucleated Red Blood Cells % 0.1 %; Red Blood Cells 3.68 10^6/uL (4.0-5.20); Red Cell Distribution Width 16.4 % (11.8-14.3); White Blood Cell 8.1 10^3/uL (4.4-10.8)
[2021-09-17 15:09] LABS: Albumin 2.8 g/dL (3.4-5.0); Calcium 8.3 mg/dL (8.5-10.1); Potassium 3.8 mmol/L (3.5-5.1)
[2021-09-17 15:12] LABS: Bilirubin, Total 0.4 mg/dL (0.2-1.0); CRP High Sensitivity 0.24 mg/dL (< 0.3); Total Protein 8.3 g/dL (6.4-8.2)
[2021-09-17] MEDS ORDERED: IOHEXOL 350 MG/ML 100ML IJ ONE (17:29)
[2021-09-17] MEDS ORDERED: cefTRIAXone 1GM/50ML D5W 50 ML IV ONE (20:00)
[2021-09-17] MEDS ORDERED: AZITHROMYCIN 500MG/ 250ML 250 ML IV ONE (20:00)
[2021-09-17 21:00] LABS: Urine Bacteria NONE SEEN /hpf (None Seen); Urine Blood Negative /uL (Negative); Urine Hyaline Cast FEW /lpf (0 - 2); Urine Mucus FEW (None Seen); Urine Specific Gravity 1.026 (1.001-1.035); Urine WBC 1 /hpf (0 - 5)
[2021-09-17] MEDS ORDERED: MORPHINE SULFATE INJ 2 MG/ml SYRG IV PRN ×2 (21:00)
[2021-09-17] MEDS ORDERED: ONDANSETRON HCL 4 MG/2 ML VIAL IV PRN (21:00)
[2021-09-17] MEDS ORDERED: NITROGLYCERIN 0.4 MG SL TAB SL PRN (21:00)
[2021-09-17] MEDS: ASCORBIC ACID 500 MG TAB PO SCH (22:40)
[2021-09-17 23:16] VITALS: BP 116/63
[2021-09-18] MEDS: HYDROcodone-ACET 5/325MG TAB PO PRN ×3 (01:39→16:44)
[2021-09-18 05:12] LABS: Basophils # (auto) 0 10 ^3/uL (0-0.2); Basophils % (auto) 0.3 % (0.0-2.0); Eosinophils # (auto) 0 10 ^3/uL (0-0.8); Eosinophils % (auto) 0.1 % (0.0-7.0); Hematocrit 25.4 % (36.0-46.0); Hemoglobin 8.4 g/dL (12.2-16.2); Lymphocytes # (auto) 0.9 10 ^3/uL (0.4-5.4); Lymphocytes % (auto) 25.6 % (10.0-50.0); Mean Corpuscular Hemoglobin 25.5 pg (28.0-32.0); Mean Corpuscular Volume 77.5 fL (80.0-100.0); Monocytes # (auto) 0.1 10 ^3/uL (0-1.3); Monocytes % (auto) 3.2 % (0.0-12.0); Neutrophils # (auto) 2.5 10 ^3/uL (1.6-8.6); Neutrophils % (auto) 70.8 % (37.0-80.0); Nucleated Red Blood Cells % 0.1 %; Red Blood Cells 3.28 10^6/uL (4.0-5.20); Red Cell Distribution Width 16.2 % (11.8-14.3); White Blood Cell 3.6 10^3/uL (4.4-10.8)
[2021-09-18 05:33] LABS: Potassium 4.4 mmol/L (3.5-5.1)
[2021-09-18 05:41] LABS: Albumin 2.6 g/dL (3.4-5.0); BUN/Creatinine Ratio 22.4; Bilirubin, Total 0.4 mg/dL (0.2-1.0); Calcium 8.1 mg/dL (8.5-10.1)
[2021-09-18] MEDS: cefTRIAXone 1GM/50ML D5W 50 ML IV SCH (09:12)
[2021-09-18] MEDS: ZINC SULFATE 220mg CAP or TAB PO SCH (09:40)
[2021-09-18] MEDS: ASCORBIC ACID 500 MG TAB PO SCH ×2 (09:40→20:52)
[2021-09-18] MEDS: ENOXAPARIN SOD 40 MG/0.4 ML SYRINGE SC SCH (09:40)
[2021-09-18] MEDS: IPRATROPIUM BROM 0.5 MG/2.5ML INH SOL NEB SCH ×2 (13:38→23:00)
[2021-09-18] MEDS: ALBUTEROL SULF 2.5 MG/0.5ML(0.5%) NEB SOLN NEB PRN ×2 (13:38→23:00)
[2021-09-18 16:17] VITALS: BP 118/86
[2021-09-18 16:37] VITALS: BP 124/69
[2021-09-18] MEDS: methylPREDNISolone SOD SUCC 125 MG/2 ML VL IV SCH (18:52)
[2021-09-18] MEDS: AZITHROMYCIN 500MG/ 250ML 250 ML IV SCH (20:52)
[2021-09-18 22:00] VITALS: BP 109/47
[2021-09-18] MEDS: BUDESONIDE (INHALATION) 0.5 MG/2 ML NEB NEB SCH ×2 (23:00→23:01)
[2021-09-19] MEDS: methylPREDNISolone SOD SUCC 125 MG/2 ML VL IV SCH ×3 (04:14→18:20)
[2021-09-19 05:00] VITALS: BP 123/45
[2021-09-19] MEDS: IPRATROPIUM BROM 0.5 MG/2.5ML INH SOL NEB SCH ×5 (06:08→21:44)
[2021-09-19] MEDS: ALBUTEROL SULF 2.5 MG/0.5ML(0.5%) NEB SOLN NEB PRN ×6 (06:08→21:44)
[2021-09-19] MEDS: BUDESONIDE (INHALATION) 0.5 MG/2 ML NEB NEB SCH ×2 (06:09→18:28)
[2021-09-19 09:00] VITALS: BP 119/67
[2021-09-19] MEDS: cefTRIAXone 1GM/50ML D5W 50 ML IV SCH (09:23)
[2021-09-19] MEDS: ZINC SULFATE 220mg CAP or TAB PO SCH (09:24)
[2021-09-19] MEDS: ASCORBIC ACID 500 MG TAB PO SCH ×2 (09:24→21:33)
[2021-09-19] MEDS: ENOXAPARIN SOD 40 MG/0.4 ML SYRINGE SC SCH (09:24)
[2021-09-19 13:00] VITALS: BP 118/60
[2021-09-19] MEDS ORDERED: ALBUAER3 IN (13:11)
[2021-09-19] MEDS ORDERED: DOXY-332 PO (13:11)
[2021-09-19] MEDS ORDERED: PRED20TA2 PO (13:11)
[2021-09-19] MEDS ORDERED: IPRIH INH (13:11)
[2021-09-19] MEDS: APIXABAN 2.5 MG TAB PO SCH ×2 (13:15→21:33)
[2021-09-19] MEDS ORDERED: LORazepam 0.5 MG TAB PO PRN (13:45)
[2021-09-19] MEDS: HYDROcodone-ACET 5/325MG TAB PO PRN (15:05)
[2021-09-19 17:00] VITALS: BP 119/50
[2021-09-19] MEDS: AZITHROMYCIN 500MG/ 250ML 250 ML IV SCH (21:33)
[2021-09-19 22:00] VITALS: BP 123/63
[2021-09-20] MEDS: methylPREDNISolone SOD SUCC 125 MG/2 ML VL IV SCH ×2 (02:43→10:43)
[2021-09-20 05:00] VITALS: BP 117/57
[2021-09-20] MEDS: HYDROcodone-ACET 5/325MG TAB PO PRN (05:39)
[2021-09-20] MEDS: ALBUTEROL SULF 2.5 MG/0.5ML(0.5%) NEB SOLN NEB PRN ×3 (07:00→14:15)
[2021-09-20] MEDS: IPRATROPIUM BROM 0.5 MG/2.5ML INH SOL NEB SCH ×3 (07:00→14:15)
[2021-09-20] MEDS: BUDESONIDE (INHALATION) 0.5 MG/2 ML NEB NEB SCH (07:01)
[2021-09-20 08:48] VITALS: BP 145/55
[2021-09-20] MEDS: APIXABAN 2.5 MG TAB PO SCH (08:59)
[2021-09-20] MEDS: ZINC SULFATE 220mg CAP or TAB PO SCH (08:59)
[2021-09-20] MEDS: ASCORBIC ACID 500 MG TAB PO SCH (08:59)
[2021-09-20] MEDS: cefTRIAXone 1GM/50ML D5W 50 ML IV SCH (09:00)
[2021-09-20 13:00] VITALS: BP 137/76
[2021-09-20 15:13] VITALS: BP 148/60
== END 2021-09-20 17:00 | disposition home health service (06) | DRG 139 ==
LOC: ER 14:00 → TELE 20:51 → TELE-WESTW 09-18 14:54
PROVIDERS: ADMIT Hospitalist; ATTEND Hospitalist
DX: J18.9 Pneumonia, unspecified organism (principal); J96.01 Acute respiratory failure with hypoxia; J84.10 Pulmonary fibrosis, unspecified; K74.60 Unspecified cirrhosis of liver; I11.9 Hypertensive heart disease without heart failure; J44.1 Chronic obstructive pulmonary disease with (acute) exacerbation; J98.11 Atelectasis; E66.9 Obesity, unspecified; Z20.822 Contact with and (suspected) exposure to COVID-19; E03.9 Hypothyroidism, unspecified; J44.0 Chronic obstructive pulmonary disease with (acute) lower respiratory infection; Z68.34 Body mass index [BMI] 34.0-34.9, adult; Z95.2 Presence of prosthetic heart valve; Z88.8 Allergy status to other drugs, medicaments and biological substances
CPT/HCPCS: 36415; 70490; 71045; 71275; 80053; 81001; 82728; 83605; 83880; 85025; 85379; 86141; 87040; 93005; 94640; 94644; G0378; J0696

== ENCOUNTER 2021-10-10 10:04 | Emergency (ER) | payer MEDICAID ==
[~2021-10-10] VITALS: Ht 165.1 cm; Wt 89.8 kg
[~2021-10-10 10:04] MED LIST changes: +DOXY-332 PO; +PRED20TA2 PO
[2021-10-10 11:02] LABS: Basophils # (auto) 0.1 10 ^3/uL (0-0.2); Hemoglobin 9.3 g/dL (12.2-16.2)
[2021-10-10 11:05] LABS: Eosinophils # (auto) 0.5 10 ^3/uL (0-0.8); Eosinophils % (auto) 4.5 % (0.0-7.0); Hematocrit 30.1 % (36.0-46.0); Lymphocytes # (auto) 1.4 10 ^3/uL (0.4-5.4); Lymphocytes % (auto) 12.6 % (10.0-50.0); Mean Corpuscular Hemoglobin 22.2 pg (28.0-32.0); Mean Corpuscular Volume 71.5 fL (80.0-100.0); Monocytes # (auto) 1.2 10 ^3/uL (0-1.3); Monocytes % (auto) 10.8 % (0.0-12.0); Neutrophils # (auto) 7.9 10 ^3/uL (1.6-8.6); Neutrophils % (auto) 71.1 % (37.0-80.0); Nucleated Red Blood Cells % 0.1 %; Red Cell Distribution Width 18.5 % (11.8-14.3); White Blood Cell 11.2 10^3/uL (4.4-10.8)
[2021-10-10 11:17] LABS: INR 1.05 (0.9-1.15); Partial Thromboplastin Time 25.8 sec (24.6-33.4)
[2021-10-10 11:38] LABS: Calcium 8.4 mg/dL (8.5-10.1); Potassium 3.3 mmol/L (3.5-5.1)
[2021-10-10 11:41] LABS: BUN/Creatinine Ratio 16.2; Bilirubin, Total 0.5 mg/dL (0.2-1.0); Total Protein 7.8 g/dL (6.4-8.2)
[2021-10-10] MEDS ORDERED: DexAMETHasone SOD PHOS 10MG/1ML VIAL INJ IM ONE (12:30)
[2021-10-10] MEDS ORDERED: AZITHROMYCIN 250 MG TAB PO ONE (12:30)
[2021-10-10] MEDS ORDERED: ALBUTEROL SULF HFA 90MCG INH 200DOSE IN SCH (14:00)
[2021-10-10] MEDS ORDERED: AZIT250T9 PO (16:27)
[2021-10-10] MEDS ORDERED: ALBU108A5 IN (16:27)
[2021-10-10] MEDS ORDERED: PRE5T PO (16:27)
[2021-10-10 18:07] VITALS: BP 134/86
== END 2021-10-10 18:00 | disposition home or self-care (01) ==
LOC: ER 10:04 → EDBD 10:04 → ER 18:00
DX: U07.1 COVID-19 (principal); I10 Essential (primary) hypertension; K21.9 Gastro-esophageal reflux disease without esophagitis; E78.5 Hyperlipidemia, unspecified; E03.9 Hypothyroidism, unspecified; Z79.82 Long term (current) use of aspirin; Z79.2 Long term (current) use of antibiotics; Z79.899 Other long term (current) drug therapy; Z88.8 Allergy status to other drugs, medicaments and biological substances
CPT/HCPCS: 36415; 71045; 80053; 83735; 83880; 84484; 85025; 85610; 85730; 93005; 96372; 99285; J1100

== ENCOUNTER 2022-04-26 15:07 | Inpatient (IN) | payer MEDICAID ==
[~2022-04-26] VITALS: Ht 162.6 cm; Wt 90.8 kg
[~2022-04-26 15:07] MED LIST changes: +ALBU108A5 IN; +AZIT250T9 PO; +PRE5T PO
[2022-04-26 15:50] LABS: Basophils # (auto) 0.1 10 ^3/uL (0-0.2); Basophils % (auto) 0.4 % (0.0-2.0); Eosinophils # (auto) 0.1 10 ^3/uL (0-0.8); Eosinophils % (auto) 0.7 % (0.0-7.0); Hematocrit 40.4 % (36.0-46.0); Hemoglobin 12.9 g/dL (12.2-16.2); Lymphocytes # (auto) 1.7 10 ^3/uL (0.4-5.4); Lymphocytes % (auto) 11.1 % (10.0-50.0); Mean Corpuscular Hemoglobin 24.6 pg (28.0-32.0); Mean Corpuscular Hgb Conc. 31.9 g/dL (32.0-36.0); Mean Corpuscular Volume 77.3 fL (80.0-100.0); Monocytes # (auto) 1.1 10 ^3/uL (0-1.3); Monocytes % (auto) 7.3 % (0.0-12.0); Neutrophils # (auto) 12.4 10 ^3/uL (1.6-8.6); Neutrophils % (auto) 80.5 % (37.0-80.0); Nucleated Red Blood Cells % 0.1 %; Red Blood Cells 5.23 10^6/uL (4.0-5.20); Red Cell Distribution Width 21.9 % (11.8-14.3); White Blood Cell 15.4 10^3/uL (4.4-10.8)
[2022-04-26 15:57] LABS: Calcium 8.8 mg/dL (8.5-10.1); Magnesium 1.9 mg/dL (1.6-2.6); Potassium 4.1 mmol/L (3.5-5.1)
[2022-04-26 15:59] LABS: BUN/Creatinine Ratio 17.1
[2022-04-26 16:03] LABS: Bilirubin, Total 0.5 mg/dL (0.2-1.0)
[2022-04-26 16:04] LABS: INR 1.04 (0.9-1.15); Partial Thromboplastin Time 26.3 sec (24.6-33.4)
[2022-04-26] MEDS ORDERED: AZITHROMYCIN 500MG/ 250ML 250 ML IV ONE (16:30)
[2022-04-26] MEDS ORDERED: cefTRIAXone 1GM/50ML D5W 50 ML IV ONE (16:30)
[2022-04-26] MEDS ORDERED: ONDANSETRON HCL 4 MG/2 ML VIAL IV PRN (18:30)
[2022-04-26] MEDS ORDERED: DOCUSATE SOD 100 MG CAP PO PRN (18:30)
[2022-04-26] MEDS ORDERED: MORPHINE SULFATE INJ 2 MG/ml SYRG IV PRN (18:30)
[2022-04-26] MEDS ORDERED: methylPREDNISolone SOD SUCC 125 MG/2 ML VL IM ONE (18:30)
[2022-04-26] MEDS ORDERED: ALBUTEROL SULF 2.5 MG/0.5ML(0.5%) NEB SOLN NEB PRN (18:30)
[2022-04-26] MEDS ORDERED: IPRATROPIUM BROM 0.5 MG/2.5ML INH SOL NEB PRN (18:30)
[2022-04-26 19:59] VITALS: BP 133/74
[2022-04-26] MEDS: SODIUM CHLORIDE 0.9% 1,000 ML IV SCH (20:35)
[2022-04-26 22:46] VITALS: BP 148/66
[2022-04-26] MEDS: DOXYCYCLINE 100MG/250ML 250 ML IV SCH (23:22)
[2022-04-26] MEDS: MONTELUKAST SODIUM 10 MG TAB PO SCH (23:23)
[2022-04-26] MEDS: ATORVASTATIN 20 MG TAB PO SCH (23:23)
[2022-04-26] MEDS: APIXABAN 2.5 MG TAB PO SCH (23:23)
[2022-04-27] VITALS (7 sets, daily range): BP systolic 130–137; BP diastolic 53–71
[2022-04-27] MEDS: SODIUM CHLORIDE 0.9% 1,000 ML IV SCH (03:34)
[2022-04-27] MEDS: methylPREDNISolone SOD SUCC 125 MG/2 ML VL IV SCH ×2 (04:59→14:30)
[2022-04-27] MEDS: LEVOTHYROXINE SODIUM 100 MCG TAB PO SCH (06:40)
[2022-04-27 07:46] LABS: Basophils # (auto) 0 10 ^3/uL (0-0.2); Basophils % (auto) 0.1 % (0.0-2.0); Eosinophils # (auto) 0 10 ^3/uL (0-0.8); Hematocrit 38.8 % (36.0-46.0); Hemoglobin 12.3 g/dL (12.2-16.2); Lymphocytes # (auto) 0.8 10 ^3/uL (0.4-5.4); Mean Corpuscular Hgb Conc. 31.6 g/dL (32.0-36.0); Monocytes # (auto) 0.1 10 ^3/uL (0-1.3); Neutrophils # (auto) 5.4 10 ^3/uL (1.6-8.6)
[2022-04-27 07:47] LABS: Mean Corpuscular Hemoglobin 24.8 pg (28.0-32.0); Mean Corpuscular Volume 78.4 fL (80.0-100.0); Neutrophils % (auto) 85.9 % (37.0-80.0); Nucleated Red Blood Cells % 0.1 %; Red Blood Cells 4.95 10^6/uL (4.0-5.20); Red Cell Distribution Width 21.9 % (11.8-14.3); White Blood Cell 6.2 10^3/uL (4.4-10.8)
[2022-04-27 07:59] LABS: Albumin 2.6 g/dL (3.4-5.0); BUN/Creatinine Ratio 26.4; Calcium 8.6 mg/dL (8.5-10.1); Potassium 4.6 mmol/L (3.5-5.1)
[2022-04-27 08:02] LABS: Bilirubin, Total 0.4 mg/dL (0.2-1.0); Total Protein 6.3 g/dL (6.4-8.2)
[2022-04-27] MEDS: cefTRIAXone 1GM/50ML D5W 50 ML IV SCH (09:11)
[2022-04-27] MEDS ORDERED: ASPirin-EC 81 mg tab PO SCH (10:00)
[2022-04-27] MEDS ORDERED: AZITHROMYCIN 500MG/ 250ML 250 ML IV SCH (10:00)
[2022-04-27] MEDS: PANTOPRAZOLE 40 MG/10 ML VIAL INJ IV SCH (10:29)
[2022-04-27] MEDS: ASPirin-EC 81 mg tab PO SCH (10:30)
[2022-04-27] MEDS: DOXYCYCLINE 100MG/250ML 250 ML IV SCH ×2 (10:30→19:57)
[2022-04-27] MEDS: APIXABAN 2.5 MG TAB PO SCH ×2 (10:31→19:58)
[2022-04-27] MEDS: LISINOPRIL 5 MG TAB PO SCH (10:32)
[2022-04-27] MEDS ORDERED: HYDROcodone-ACET 5/325MG TAB PO ONE (18:00)
[2022-04-27] MEDS: methylPREDNISolone SOD SUCC 40 MG/ML VL IV SCH (19:57)
[2022-04-27] MEDS: MONTELUKAST SODIUM 10 MG TAB PO SCH (19:58)
[2022-04-27] MEDS: ATORVASTATIN 20 MG TAB PO SCH (19:58)
[2022-04-27] MEDS: ACETAMINOPHEN 325 MG TAB PO PRN (23:16)
[2022-04-28] VITALS (7 sets, daily range): BP systolic 107–139; BP diastolic 48–69
[2022-04-28] MEDS: methylPREDNISolone SOD SUCC 40 MG/ML VL IV SCH ×4 (03:53→22:41)
[2022-04-28] MEDS: LEVOTHYROXINE SODIUM 100 MCG TAB PO SCH (05:24)
[2022-04-28] MEDS: HYDROcodone-ACET 5/325MG TAB PO PRN ×2 (05:28→20:50)
[2022-04-28] MEDS: cefTRIAXone 1GM/50ML D5W 50 ML IV SCH (08:33)
[2022-04-28] MEDS: PANTOPRAZOLE 40 MG/10 ML VIAL INJ IV SCH (10:07)
[2022-04-28] MEDS: DOXYCYCLINE 100MG/250ML 250 ML IV SCH ×2 (10:07→22:41)
[2022-04-28] MEDS: APIXABAN 2.5 MG TAB PO SCH (10:08)
[2022-04-28] MEDS: ASPirin-EC 81 mg tab PO SCH (10:08)
[2022-04-28] MEDS: LISINOPRIL 5 MG TAB PO SCH (10:09)
[2022-04-28] MEDS ORDERED: MECLIZINE HCL 25 MG TAB PO ONE (20:00)
[2022-04-28] MEDS ORDERED: GABAPENTIN 300 MG CAP PO ONE (20:15)
[2022-04-28] MEDS: MONTELUKAST SODIUM 10 MG TAB PO SCH (20:50)
[2022-04-28] MEDS: ATORVASTATIN 20 MG TAB PO SCH (20:50)
[2022-04-29] VITALS (7 sets, daily range): BP systolic 108–136; BP diastolic 47–71
[2022-04-29] MEDS: methylPREDNISolone SOD SUCC 40 MG/ML VL IV SCH ×2 (05:26→20:41)
[2022-04-29] MEDS: LEVOTHYROXINE SODIUM 100 MCG TAB PO SCH (06:41)
[2022-04-29] MEDS: cefTRIAXone 1GM/50ML D5W 50 ML IV SCH (09:34)
[2022-04-29] MEDS: ASPirin-EC 81 mg tab PO SCH (09:46)
[2022-04-29] MEDS: PANTOPRAZOLE 40 MG/10 ML VIAL INJ IV SCH (09:46)
[2022-04-29] MEDS: GABAPENTIN 300 MG CAP PO SCH ×2 (09:47→20:42)
[2022-04-29] MEDS: LISINOPRIL 5 MG TAB PO SCH (09:51)
[2022-04-29] MEDS ORDERED: MECLIZINE HCL 25 MG TAB PO PRN (10:00)
[2022-04-29] MEDS: DOXYCYCLINE 100MG/250ML 250 ML IV SCH (10:39)
[2022-04-29] MEDS ORDERED: FUROSEMIDE 20 MG/2 ML VIAL IV ONE (12:45)
[2022-04-29] MEDS ORDERED: POTASSIUM CHL 10 Meq TABLET PO ONE (12:45)
[2022-04-29 17:12] LABS: Urine Bacteria NONE SEEN /hpf (None Seen); Urine Blood Negative /uL (Negative); Urine Hyaline Cast FEW /lpf (0 - 2); Urine Specific Gravity 1.007 (1.001-1.035); Urine WBC <1 /hpf (0 - 5)
[2022-04-29] MEDS: ALBUTEROL MEDNEB 2.5 mg/3ml NEB NEB SCH (17:55)
[2022-04-29] MEDS: IPRATROPIUM BROM 0.5 MG/2.5ML INH SOL NEB SCH (17:55)
[2022-04-29] MEDS: ATORVASTATIN 20 MG TAB PO SCH (20:41)
[2022-04-29] MEDS: MONTELUKAST SODIUM 10 MG TAB PO SCH (20:42)
[2022-04-29] MEDS: DOXYCYCLINE 100 MG TAB/CAP PO SCH (20:43)
[2022-04-29] MEDS: HYDROcodone-ACET 5/325MG TAB PO PRN (20:43)
[2022-04-30] VITALS (7 sets, daily range): BP systolic 96–108; BP diastolic 38–54
[2022-04-30 05:47] LABS: Basophils # (auto) 0 10 ^3/uL (0-0.2); Hemoglobin 12.5 g/dL (12.2-16.2); Monocytes # (auto) 1.8 10 ^3/uL (0-1.3); Nucleated Red Blood Cells % 0.1 %
[2022-04-30 05:50] LABS: Basophils % (auto) 0.3 % (0.0-2.0); Eosinophils # (auto) 0.3 10 ^3/uL (0-0.8); Eosinophils % (auto) 2.2 % (0.0-7.0); Hematocrit 40.8 % (36.0-46.0); Lymphocytes % (auto) 19.5 % (10.0-50.0); Mean Corpuscular Hemoglobin 24.4 pg (28.0-32.0); Mean Corpuscular Hgb Conc. 30.7 g/dL (32.0-36.0); Mean Corpuscular Volume 79.5 fL (80.0-100.0); Monocytes % (auto) 11.6 % (0.0-12.0); Neutrophils # (auto) 10.3 10 ^3/uL (1.6-8.6); Neutrophils % (auto) 66.4 % (37.0-80.0); Red Blood Cells 5.13 10^6/uL (4.0-5.20); White Blood Cell 15.5 10^3/uL (4.4-10.8)
[2022-04-30 05:51] LABS: Red Cell Distribution Width 22.4 % (11.8-14.3)
[2022-04-30] MEDS: IPRATROPIUM BROM 0.5 MG/2.5ML INH SOL NEB SCH ×4 (06:08→19:18)
[2022-04-30] MEDS: ALBUTEROL MEDNEB 2.5 mg/3ml NEB NEB SCH ×4 (06:08→19:18)
[2022-04-30] MEDS: LEVOTHYROXINE SODIUM 100 MCG TAB PO SCH (07:01)
[2022-04-30 07:57] LABS: BUN/Creatinine Ratio 39.3; Calcium 7.9 mg/dL (8.5-10.1); Potassium 4.3 mmol/L (3.5-5.1)
[2022-04-30] MEDS ORDERED: FUROSEMIDE 20 MG/2 ML VIAL IV SCH (10:00)
[2022-04-30] MEDS ORDERED: POTASSIUM CHL 10 Meq TABLET PO SCH (10:00)
[2022-04-30] MEDS ORDERED: PANTOPRAZOLE 40 MG TAB PO SCH (10:00)
[2022-04-30] MEDS: methylPREDNISolone SOD SUCC 40 MG/ML VL IV SCH ×2 (10:27→21:10)
[2022-04-30] MEDS: GABAPENTIN 300 MG CAP PO SCH ×2 (10:28→21:20)
[2022-04-30] MEDS: ASPirin-EC 81 mg tab PO SCH (10:28)
[2022-04-30] MEDS: LISINOPRIL 5 MG TAB PO SCH (10:29)
[2022-04-30] MEDS: DOXYCYCLINE 100 MG TAB/CAP PO SCH (10:29)
[2022-04-30] MEDS: cefTRIAXone 1GM/50ML D5W 50 ML IV SCH (10:30)
[2022-04-30] MEDS: HYDROcodone-ACET 5/325MG TAB PO PRN (14:25)
[2022-04-30] MEDS ORDERED: PANTOPRAZOLE 40 MG/10 ML VIAL INJ IV ONE (14:30)
[2022-04-30] MEDS ORDERED: PIPERACILLIN-TAZOB 3.375GM 100 ML IV ONE (14:30)
[2022-04-30] MEDS ORDERED: ONDANSETRON HCL 4 MG/2 ML VIAL IV PRN (14:30)
[2022-04-30] MEDS: PIPERACILLIN-TAZOB 3.375GM 100 ML IV SCH (21:14)
[2022-04-30] MEDS: ATORVASTATIN 20 MG TAB PO SCH (21:19)
[2022-04-30] MEDS: MONTELUKAST SODIUM 10 MG TAB PO SCH (21:20)
[2022-05-01 05:00] VITALS: BP 110/63
[2022-05-01 06:26] LABS: Basophils # (auto) 0 10 ^3/uL (0-0.2); Eosinophils # (auto) 0 10 ^3/uL (0-0.8); Lymphocytes # (auto) 0.7 10 ^3/uL (0.4-5.4); Monocytes # (auto) 0.2 10 ^3/uL (0-1.3)
[2022-05-01] MEDS: LEVOTHYROXINE SODIUM 100 MCG TAB PO SCH (06:27)
[2022-05-01] MEDS: PIPERACILLIN-TAZOB 3.375GM 100 ML IV SCH ×3 (06:27→20:37)
[2022-05-01 06:29] LABS: Hematocrit 37.9 % (36.0-46.0); Lymphocytes % (auto) 7.9 % (10.0-50.0); Mean Corpuscular Hemoglobin 24.6 pg (28.0-32.0); Mean Corpuscular Hgb Conc. 31.7 g/dL (32.0-36.0); Mean Corpuscular Volume 77.4 fL (80.0-100.0); Monocytes % (auto) 2.7 % (0.0-12.0); Neutrophils % (auto) 89.4 % (37.0-80.0); Nucleated Red Blood Cells % 0.1 %; Red Blood Cells 4.89 10^6/uL (4.0-5.20); White Blood Cell 8.9 10^3/uL (4.4-10.8)
[2022-05-01 06:31] LABS: Red Cell Distribution Width 22.3 % (11.8-14.3)
[2022-05-01 06:45] LABS: Calcium 8.1 mg/dL (8.5-10.1); Potassium 4.4 mmol/L (3.5-5.1)
[2022-05-01 06:47] LABS: BUN/Creatinine Ratio 33.8
[2022-05-01] MEDS: ALBUTEROL MEDNEB 2.5 mg/3ml NEB NEB SCH ×3 (07:31→18:56)
[2022-05-01] MEDS: IPRATROPIUM BROM 0.5 MG/2.5ML INH SOL NEB SCH ×3 (07:31→18:56)
[2022-05-01 08:00] VITALS: BP 106/60
[2022-05-01] MEDS: methylPREDNISolone SOD SUCC 40 MG/ML VL IV SCH (09:58)
[2022-05-01] MEDS: ASPirin-EC 81 mg tab PO SCH (09:58)
[2022-05-01] MEDS: GABAPENTIN 300 MG CAP PO SCH ×2 (09:58→20:37)
[2022-05-01] MEDS ORDERED: PANTOPRAZOLE 40 MG/10 ML VIAL INJ IV SCH (10:00)
[2022-05-01 12:46] VITALS: BP 152/75
[2022-05-01] MEDS: HYDROcodone-ACET 5/325MG TAB PO PRN (14:07)
[2022-05-01 17:02] VITALS: BP 130/63
[2022-05-01 20:00] VITALS: BP 106/60
[2022-05-01] MEDS: ATORVASTATIN 20 MG TAB PO SCH (20:37)
[2022-05-01] MEDS: MONTELUKAST SODIUM 10 MG TAB PO SCH (20:38)
[2022-05-01 22:00] VITALS: BP 124/67
[2022-05-02] MEDS: HYDROcodone-ACET 5/325MG TAB PO PRN (02:09)
[2022-05-02 05:00] VITALS: BP 133/79
[2022-05-02] MEDS: PIPERACILLIN-TAZOB 3.375GM 100 ML IV SCH (05:14)
[2022-05-02] MEDS: LEVOTHYROXINE SODIUM 100 MCG TAB PO SCH (05:14)
[2022-05-02] MEDS: ALBUTEROL MEDNEB 2.5 mg/3ml NEB NEB SCH ×2 (07:01→12:21)
[2022-05-02] MEDS: IPRATROPIUM BROM 0.5 MG/2.5ML INH SOL NEB SCH ×2 (07:01→12:21)
[2022-05-02 09:00] VITALS: BP 134/49
[2022-05-02] MEDS: ASPirin-EC 81 mg tab PO SCH (09:43)
[2022-05-02] MEDS: GABAPENTIN 300 MG CAP PO SCH (09:44)
[2022-05-02] MEDS: ACETAMINOPHEN 325 MG TAB PO PRN (09:44)
[2022-05-02] MEDS ORDERED: predniSONE 20 MG TAB PO SCH (10:00)
[2022-05-02] MEDS ORDERED: PANTOPRAZOLE 40 MG TAB PO SCH (10:00)
[2022-05-02] MEDS ORDERED: CEFD300C2 PO (11:57)
[2022-05-02] MEDS ORDERED: PRED10TA PO (11:57)
[2022-05-02] MEDS ORDERED: KETOROLAC TROMETH 30 MG/ML 1ML VIAL IV ONE (12:00)
[2022-05-02] MEDS ORDERED: CELECOXIB 100 MG CAP PO ONE (12:00)
[2022-05-02 13:00] VITALS: BP 125/65
[2022-05-02] MEDS ORDERED: HYDROcodone-ACET 10/325MG TAB PO ONE (13:30)
== END 2022-05-02 16:20 | disposition home or self-care (01) | DRG 137 ==
LOC: ER 15:07 → TELE 18:33 → TELE-WESTW 22:41
PROVIDERS: ADMIT Nurse Practitioner Family; ATTEND Internal Medicine
DX: J15.6 Pneumonia due to other Gram-negative bacteria (principal); J96.20 Acute and chronic respiratory failure, unspecified whether with hypoxia or hypercapnia; I50.43 Acute on chronic combined systolic (congestive) and diastolic (congestive) heart failure; I11.0 Hypertensive heart disease with heart failure; M34.9 Systemic sclerosis, unspecified; J44.0 Chronic obstructive pulmonary disease with (acute) lower respiratory infection; J44.1 Chronic obstructive pulmonary disease with (acute) exacerbation; J84.10 Pulmonary fibrosis, unspecified; K74.60 Unspecified cirrhosis of liver; Z20.822 Contact with and (suspected) exposure to COVID-19; I48.91 Unspecified atrial fibrillation; E03.9 Hypothyroidism, unspecified; E78.5 Hyperlipidemia, unspecified; I25.10 Atherosclerotic heart disease of native coronary artery without angina pectoris; K21.9 Gastro-esophageal reflux disease without esophagitis; E66.9 Obesity, unspecified; Z68.35 Body mass index [BMI] 35.0-35.9, adult; Z80.49 Family history of malignant neoplasm of other genital organs; Z82.5 Family history of asthma and other chronic lower respiratory diseases; Z86.16 Personal history of COVID-19; Z95.2 Presence of prosthetic heart valve; Z97.0 Presence of artificial eye; Z88.8 Allergy status to other drugs, medicaments and biological substances; H70.91 Unspecified mastoiditis, right ear
CPT/HCPCS: 36415; 70450; 71045; 71250; 74176; 80048; 80053; 81001; 83690; 83735; 83880; 84443; 84484; 85025; 85610; 85730; 87426; 93005; 93306; 94640; 96365; 96372; 96375; 97110; 97116; 97163; 97530; C9113; G0378; J0696; J2405; J2543; J3490

== ENCOUNTER 2022-06-08 17:47 | Emergency (ER) | payer MEDICAID ==
[~2022-06-08] VITALS: Ht 162.6 cm; Wt 92.7 kg
[~2022-06-08 17:47] MED LIST changes: -APIX2.5T PO; +CEFD300C2 PO; +PRED10TA PO
[2022-06-08 17:54] VITALS: BP 99/41
[2022-06-08 18:38] LABS: Basophils # (auto) 0.1 10 ^3/uL (0-0.2); Eosinophils # (auto) 0.9 10 ^3/uL (0-0.8); Eosinophils % (auto) 9.2 % (0.0-7.0); Hematocrit 39.6 % (36.0-46.0); Lymphocytes % (auto) 21.7 % (10.0-50.0); Mean Corpuscular Hemoglobin 27.7 pg (28.0-32.0); Mean Corpuscular Hgb Conc. 32.9 g/dL (32.0-36.0); Mean Corpuscular Volume 84.3 fL (80.0-100.0); Monocytes # (auto) 1.1 10 ^3/uL (0-1.3); Monocytes % (auto) 12.2 % (0.0-12.0); Neutrophils # (auto) 5.3 10 ^3/uL (1.6-8.6); Neutrophils % (auto) 55.9 % (37.0-80.0); Nucleated Red Blood Cells % 0.2 %; White Blood Cell 9.4 10^3/uL (4.4-10.8)
[2022-06-08 18:44] LABS: Red Cell Distribution Width 20.4 % (11.8-14.3)
[2022-06-08 18:55] LABS: INR 1.04 (0.9-1.15); Partial Thromboplastin Time 28.4 sec (24.6-33.4)
[2022-06-08 19:02] LABS: Albumin 3.1 g/dL (3.4-5.0); Calcium 8.3 mg/dL (8.5-10.1); Magnesium 1.8 mg/dL (1.6-2.6)
[2022-06-08 19:07] LABS: BUN/Creatinine Ratio 15.7; Bilirubin, Total 0.6 mg/dL (0.2-1.0); Total Protein 7.1 g/dL (6.4-8.2)
== END 2022-06-08 20:34 | disposition home or self-care (01) ==
LOC: ER 17:47
DX: R07.89 Other chest pain (principal); J44.9 Chronic obstructive pulmonary disease, unspecified; K21.9 Gastro-esophageal reflux disease without esophagitis; E78.5 Hyperlipidemia, unspecified; I10 Essential (primary) hypertension; Z88.1 Allergy status to other antibiotic agents; Z88.6 Allergy status to analgesic agent; Z88.8 Allergy status to other drugs, medicaments and biological substances
CPT/HCPCS: 36415; 71045; 80053; 83735; 83880; 84484; 85025; 85610; 85730; 93005

== ENCOUNTER 2022-07-28 15:45 | Inpatient (IN) | payer MEDICAID ==
[~2022-07-28] VITALS: Ht 162.6 cm; Wt 95.4 kg
[2022-07-28] MEDS ORDERED: KETOROLAC TROMETH 60MG/2ML VIAL IM ONE (16:45)
[2022-07-28 17:01] LABS: Basophils # (auto) 0.1 10 ^3/uL (0-0.2); Basophils % (auto) 0.5 % (0.0-2.0); Eosinophils # (auto) 0.2 10 ^3/uL (0-0.8); Hematocrit 42.9 % (36.0-46.0); Hemoglobin 14.2 g/dL (12.2-16.2); Lymphocytes % (auto) 6.2 % (10.0-50.0); Mean Corpuscular Hemoglobin 28.9 pg (28.0-32.0); Mean Corpuscular Volume 87.4 fL (80.0-100.0); Monocytes # (auto) 0.8 10 ^3/uL (0-1.3); Monocytes % (auto) 4.8 % (0.0-12.0); Neutrophils # (auto) 14.6 10 ^3/uL (1.6-8.6); Neutrophils % (auto) 87.5 % (37.0-80.0); Red Blood Cells 4.91 10^6/uL (4.0-5.20); Red Cell Distribution Width 15.1 % (11.8-14.3); White Blood Cell 16.7 10^3/uL (4.4-10.8)
[2022-07-28 17:17] LABS: Albumin 3.5 g/dL (3.4-5.0); Calcium 8.7 mg/dL (8.5-10.1); INR 1.01 (0.9-1.15); Potassium 4.3 mmol/L (3.5-5.1)
[2022-07-28 17:22] LABS: BUN/Creatinine Ratio 21.8 (10.0-20.0); Bilirubin, Total 0.4 mg/dL (0.2-1.0); Total Protein 7.3 g/dL (6.4-8.2)
[2022-07-28] MEDS ORDERED: ONDANSETRON HCL 4 MG/2 ML VIAL IV ONE (18:30)
[2022-07-28] MEDS ORDERED: MORPHINE SULFATE INJ 2 MG/ml SYRG IV ONE (18:30)
[2022-07-28] MEDS ORDERED: AZITHROMYCIN 500MG/ 250ML 250 ML IV ONE (22:45)
[2022-07-28] MEDS ORDERED: MORPHINE SULFATE INJ 2 MG/ml SYRG IV PRN (22:45)
[2022-07-28] MEDS ORDERED: IPRATROPIUM BROM 0.5 MG/2.5ML INH SOL NEB PRN (22:45)
[2022-07-28] MEDS ORDERED: ACETAMINOPHEN 325 MG TAB PO PRN (22:45)
[2022-07-28] MEDS ORDERED: ALBUTEROL SULF 2.5 MG/0.5ML(0.5%) NEB SOLN NEB PRN (22:45)
[2022-07-28] MEDS ORDERED: cefTRIAXone 1GM/50ML D5W 50 ML IV ONE (22:45)
[2022-07-28] MEDS ORDERED: NITROGLYCERIN 0.4 MG SL TAB SL PRN (22:45)
[2022-07-28 23:06] LABS: Cholesterol 231 mg/dL (< 200)
[2022-07-28 23:08] LABS: HDL Cholesterol 107 mg/dL (40-59); LDL Cholesterol 105 mg/dL (< 100); Triglycerides 111 mg/dL (< 150)
[2022-07-28] MEDS: HYDROcodone-ACET 5/325MG TAB PO PRN (23:17)
[2022-07-28 23:51] VITALS: BP 111/61
[2022-07-29] VITALS (7 sets, daily range): BP systolic 106–142; BP diastolic 48–66
[2022-07-29] MEDS: IPRATROPIUM BROM 0.5 MG/2.5ML INH SOL NEB SCH ×4 (00:39→18:42)
[2022-07-29] MEDS: ALBUTEROL SULF 2.5 MG/0.5ML(0.5%) NEB SOLN NEB SCH ×4 (00:39→18:42)
[2022-07-29] MEDS: LEVOTHYROXINE SODIUM 100 MCG TAB PO SCH (06:02)
[2022-07-29 06:30] LABS: Potassium 4.1 mmol/L (3.5-5.1)
[2022-07-29 06:36] LABS: Basophils # (auto) 0.1 10 ^3/uL (0-0.2); Basophils % (auto) 0.7 % (0.0-2.0); Eosinophils # (auto) 0.2 10 ^3/uL (0-0.8); Eosinophils % (auto) 2.1 % (0.0-7.0); Hematocrit 38.6 % (36.0-46.0); Hemoglobin 13.1 g/dL (12.2-16.2); Lymphocytes # (auto) 1.9 10 ^3/uL (0.4-5.4); Lymphocytes % (auto) 17.9 % (10.0-50.0); Mean Corpuscular Hemoglobin 29.3 pg (28.0-32.0); Mean Corpuscular Hgb Conc. 33.8 g/dL (32.0-36.0); Mean Corpuscular Volume 86.5 fL (80.0-100.0); Monocytes % (auto) 9.4 % (0.0-12.0); Neutrophils # (auto) 7.5 10 ^3/uL (1.6-8.6); Neutrophils % (auto) 69.9 % (37.0-80.0); Nucleated Red Blood Cells % 0.2 %; Red Blood Cells 4.47 10^6/uL (4.0-5.20); White Blood Cell 10.7 10^3/uL (4.4-10.8)
[2022-07-29 06:48] LABS: Albumin 3.1 g/dL (3.4-5.0); BUN/Creatinine Ratio 24.4 (10.0-20.0); Bilirubin, Total 0.6 mg/dL (0.2-1.0); Calcium 8.5 mg/dL (8.5-10.1); Total Protein 7.1 g/dL (6.4-8.2)
[2022-07-29] MEDS: ASPirin-EC 81 mg tab PO SCH (09:38)
[2022-07-29] MEDS: cefTRIAXone 1GM/50ML D5W 50 ML IV SCH (09:38)
[2022-07-29] MEDS: MORPHINE SULFATE INJ 2 MG/ml SYRG IV PRN ×2 (09:39→19:41)
[2022-07-29] MEDS ORDERED: ENOXAPARIN SOD 40 MG/0.4 ML SYRINGE SC SCH (10:00)
[2022-07-29] MEDS ORDERED: AZITHROMYCIN 500MG/ 250ML 250 ML IV SCH (10:00)
[2022-07-29] MEDS ORDERED: LIDOCAINE 5% TOPICAL PATCH TOP ONE (10:45)
[2022-07-29 13:25] LABS: Hepatitis C Antibody Negative (Negative)
[2022-07-29 13:47] LABS: Urine Bacteria NONE SEEN /hpf (None Seen); Urine Blood Negative /uL (Negative); Urine Specific Gravity 1.024 (1.001-1.035); Urine WBC <1 /hpf (0 - 5)
[2022-07-29] MEDS: HYDROcodone-ACET 5/325MG TAB PO PRN ×2 (15:02→20:42)
[2022-07-30] MEDS: IPRATROPIUM BROM 0.5 MG/2.5ML INH SOL NEB SCH ×4 (01:12→18:15)
[2022-07-30] MEDS: ALBUTEROL SULF 2.5 MG/0.5ML(0.5%) NEB SOLN NEB SCH ×4 (01:12→18:15)
[2022-07-30] MEDS: HYDROcodone-ACET 5/325MG TAB PO PRN ×3 (04:17→14:33)
[2022-07-30 05:00] VITALS: BP_SYST 116; BP_SYST 132; BP_SYST 138; BP_DIAS 44; BP_DIAS 56; BP_DIAS 73
[2022-07-30] MEDS: LEVOTHYROXINE SODIUM 100 MCG TAB PO SCH (06:03)
[2022-07-30 07:45] VITALS: BP_SYST 119; BP_SYST 122; BP_DIAS 36; BP_DIAS 42
[2022-07-30 08:15] VITALS: BP 137/70
[2022-07-30] MEDS: ASPirin-EC 81 mg tab PO SCH (08:15)
[2022-07-30 08:45] VITALS: BP 134/62
[2022-07-30] MEDS: cefTRIAXone 1GM/50ML D5W 50 ML IV SCH (09:00)
[2022-07-30] MEDS ORDERED: LIDOCAINE 5% TOPICAL PATCH TOP SCH (10:00)
[2022-07-30] MEDS ORDERED: AZITHROMYCIN 250 MG TAB PO SCH (10:00)
[2022-07-30] MEDS ORDERED: LIDO5DIS21 TOP (10:04)
[2022-07-30] MEDS ORDERED: HYDR1TAB97 PO (10:04)
[2022-07-30 12:15] VITALS: BP 130/52
[2022-07-30 16:15] VITALS: BP 127/50
== END 2022-07-30 18:55 | disposition home or self-care (01) | DRG 135 ==
LOC: ER 15:45 → TELE 22:36 → TELE-CENTR 07-29 03:44 → CENTRAL 07-29 11:51
PROVIDERS: ADMIT Registered Nurse; ATTEND Internal Medicine
DX: S22.41XA Multiple fractures of ribs, right side, initial encounter for closed fracture (principal); J18.9 Pneumonia, unspecified organism; I27.20 Pulmonary hypertension, unspecified; J96.10 Chronic respiratory failure, unspecified whether with hypoxia or hypercapnia; M34.9 Systemic sclerosis, unspecified; J84.10 Pulmonary fibrosis, unspecified; J44.9 Chronic obstructive pulmonary disease, unspecified; E78.5 Hyperlipidemia, unspecified; I11.0 Hypertensive heart disease with heart failure; I50.32 Chronic diastolic (congestive) heart failure; E03.9 Hypothyroidism, unspecified; K74.60 Unspecified cirrhosis of liver; E66.9 Obesity, unspecified; K21.9 Gastro-esophageal reflux disease without esophagitis; W18.39XA Other fall on same level, initial encounter; R55 Syncope and collapse; Y93.89 Activity, other specified; Y92.89 Other specified places as the place of occurrence of the external cause; Y99.8 Other external cause status; Z80.9 Family history of malignant neoplasm, unspecified; Z95.2 Presence of prosthetic heart valve; Z97.0 Presence of artificial eye; Z88.8 Allergy status to other drugs, medicaments and biological substances
CPT/HCPCS: 36415; 71046; 71250; 80053; 80061; 81001; 83036; 84443; 85025; 85610; 85730; 86803; 87040; 87340; 93886; 94640; 96365; 96375; 97110; 97116; 97163; 97530; G0378; J0696; J1885; J2405

== ENCOUNTER 2022-08-25 14:25 | Inpatient (IN) | payer MEDICAID ==
[~2022-08-25] VITALS: Ht 162.6 cm; Wt 96.6 kg
[~2022-08-25 14:25] MED LIST changes: +AZIT-43 PO; -AZIT250T9 PO; -DOXY-332 PO; +DOXY-448 PO; +HYDR1TAB97 PO; +LIDO5DIS21 TOP
[2022-08-25 15:27] LABS: Basophils # (auto) 0.1 10 ^3/uL (0-0.2); Basophils % (auto) 1.1 % (0.0-2.0); Eosinophils # (auto) 0.6 10 ^3/uL (0-0.8); Eosinophils % (auto) 6.2 % (0.0-7.0); Hemoglobin 13.7 g/dL (12.2-16.2); Lymphocytes # (auto) 1.2 10 ^3/uL (0.4-5.4); Lymphocytes % (auto) 13.4 % (10.0-50.0); Mean Corpuscular Hemoglobin 29.5 pg (28.0-32.0); Mean Corpuscular Hgb Conc. 33.4 g/dL (32.0-36.0); Mean Corpuscular Volume 88.2 fL (80.0-100.0); Monocytes # (auto) 0.8 10 ^3/uL (0-1.3); Monocytes % (auto) 8.3 % (0.0-12.0); Neutrophils # (auto) 6.5 10 ^3/uL (1.6-8.6); Nucleated Red Blood Cells % 0.1 %; Red Blood Cells 4.65 10^6/uL (4.0-5.20); Red Cell Distribution Width 15.2 % (11.8-14.3); White Blood Cell 9.1 10^3/uL (4.4-10.8)
[2022-08-25 15:57] LABS: Calcium 8.2 mg/dL (8.5-10.1); Potassium 3.7 mmol/L (3.5-5.1)
[2022-08-25 16:00] LABS: Bilirubin, Total 0.5 mg/dL (0.2-1.0); Total Protein 6.8 g/dL (6.4-8.2)
[2022-08-25] MEDS ORDERED: ALBUTEROL SULF 2.5 MG/0.5ML(0.5%) NEB SOLN NEB ONE (17:00)
[2022-08-25] MEDS ORDERED: BUDESONIDE (INHALATION) 0.5 MG/2 ML NEB NEB ONE (17:00)
[2022-08-25] MEDS ORDERED: PIPERACILLIN-TAZOB 3.375GM 100 ML IV ONE (17:00)
[2022-08-25 17:25] LABS: INR 1.06 (0.9-1.15); Partial Thromboplastin Time 28.9 sec (24.6-33.4)
[2022-08-25] MEDS ORDERED: DexAMETHasone SOD PHOS 10MG/1ML VIAL INJ IV ONE (17:30)
[2022-08-25] MEDS ORDERED: IPRATROPIUM BROM 0.5 MG/2.5ML INH SOL NEB PRN (18:30)
[2022-08-25] MEDS ORDERED: PANTOPRAZOLE 40 MG/10 ML VIAL INJ IV ONE (18:30)
[2022-08-25] MEDS ORDERED: ALBUTEROL SULF 2.5 MG/0.5ML(0.5%) NEB SOLN NEB PRN (18:30)
[2022-08-25] MEDS ORDERED: ACETAMINOPHEN 325 MG TAB PO PRN (18:45)
[2022-08-25] MEDS ORDERED: SODIUM CHLORIDE 0.9% 1,000 ML IV ONE (18:45)
[2022-08-25] MEDS ORDERED: NITROGLYCERIN 0.4 MG SL TAB SL PRN (18:45)
[2022-08-25] MEDS ORDERED: MORPHINE SULFATE INJ 2 MG/ml SYRG IV PRN ×2 (18:45)
[2022-08-25] MEDS ORDERED: METOPROLOL TARTRATE 1MG/1ML-5ML VIAL IV PRN (18:45)
[2022-08-25] MEDS: ENOXAPARIN SOD 40 MG/0.4 ML SYRINGE SC SCH (19:05)
[2022-08-25] MEDS ORDERED: IOHEXOL 350 MG/ML 100ML IJ ONE (19:33)
[2022-08-25 20:06] LABS: INR 1.08 (0.9-1.15); Partial Thromboplastin Time 29.6 sec (24.6-33.4)
[2022-08-25 20:25] LABS: Cholesterol 190 mg/dL (< 200)
[2022-08-25 20:27] LABS: HDL Cholesterol 77 mg/dL (40-59); LDL Cholesterol 104 mg/dL (< 100); Triglycerides 71 mg/dL (< 150)
[2022-08-25 21:17] VITALS: BP 129/63
[2022-08-25] MEDS: methylPREDNISolone SOD SUCC 125 MG/2 ML VL IV SCH (22:00)
[2022-08-25 22:05] VITALS: BP 144/66
[2022-08-25] MEDS: MONTELUKAST SODIUM 10 MG TAB PO SCH (23:22)
[2022-08-25] MEDS: HYDROcodone-ACET 5/325MG TAB PO PRN (23:36)
[2022-08-26] MEDS ORDERED: IODIXANOL 320MG/ML 100ML BTL IV ONE (01:52)
[2022-08-26] MEDS: HYDROcodone-ACET 5/325MG TAB PO PRN ×3 (04:56→20:29)
[2022-08-26 05:00] VITALS: BP 112/55
[2022-08-26] MEDS: LEVOTHYROXINE SODIUM 100 MCG TAB PO SCH (06:27)
[2022-08-26] MEDS: ALBUTEROL SULF 2.5 MG/0.5ML(0.5%) NEB SOLN NEB SCH ×4 (06:53→18:28)
[2022-08-26] MEDS: IPRATROPIUM BROM 0.5 MG/2.5ML INH SOL NEB SCH ×4 (06:55→18:28)
[2022-08-26 07:01] LABS: Basophils # (auto) 0 10 ^3/uL (0-0.2); Basophils % (auto) 0.3 % (0.0-2.0); Eosinophils # (auto) 0 10 ^3/uL (0-0.8); Eosinophils % (auto) 0.1 % (0.0-7.0); Hematocrit 35.9 % (36.0-46.0); Hemoglobin 12.3 g/dL (12.2-16.2); Lymphocytes # (auto) 0.7 10 ^3/uL (0.4-5.4); Mean Corpuscular Hemoglobin 30.1 pg (28.0-32.0); Mean Corpuscular Hgb Conc. 34.1 g/dL (32.0-36.0); Mean Corpuscular Volume 88.1 fL (80.0-100.0); Monocytes # (auto) 0.2 10 ^3/uL (0-1.3); Neutrophils # (auto) 2.9 10 ^3/uL (1.6-8.6); Neutrophils % (auto) 75.6 % (37.0-80.0); Nucleated Red Blood Cells % 0.1 %; Red Blood Cells 4.08 10^6/uL (4.0-5.20); White Blood Cell 3.8 10^3/uL (4.4-10.8)
[2022-08-26 07:27] LABS: Anion Gap 5 (5-15); Blood Urea Nitrogen 13 mg/dL (7-18); Carbon Dioxide 24 mmol/L (21-32); Chloride 109 mmol/L (98-107); GFR African American 160 mL/min; GFR Non-African American 132 mL/min; Glucose 134 mg/dL (74-106); Potassium 4.3 mmol/L (3.5-5.1); Sodium 138 mmol/L (136-145)
[2022-08-26 07:28] LABS: Alanine Aminotransferase 49 U/L (13-56); Alkaline Phosphatase 152 U/L (45-117); Aspartate Aminotransferase 39 U/L (15-37); Bilirubin, Total 0.5 mg/dL (0.2-1.0); Calcium 8.2 mg/dL (8.5-10.1); Total Protein 6.8 g/dL (6.4-8.2)
[2022-08-26 09:00] VITALS: BP_SYST 116; BP_SYST 127; BP_DIAS 64; BP_DIAS 89
[2022-08-26] MEDS: ASPirin 81 mg TAB PO SCH (09:10)
[2022-08-26] MEDS: methylPREDNISolone SOD SUCC 125 MG/2 ML VL IV SCH ×2 (09:11→21:46)
[2022-08-26] MEDS: PANTOPRAZOLE 40 MG/10 ML VIAL INJ IV SCH (09:11)
[2022-08-26] MEDS: ENOXAPARIN SOD 40 MG/0.4 ML SYRINGE SC SCH (11:10)
[2022-08-26 13:00] VITALS: BP 138/71
[2022-08-26 17:00] VITALS: BP 128/51
[2022-08-26] MEDS: MONTELUKAST SODIUM 10 MG TAB PO SCH (21:46)
[2022-08-26 22:00] VITALS: BP 115/46
[2022-08-27] MEDS: IPRATROPIUM BROM 0.5 MG/2.5ML INH SOL NEB SCH ×6 (00:04→22:23)
[2022-08-27] MEDS: ALBUTEROL SULF 2.5 MG/0.5ML(0.5%) NEB SOLN NEB SCH ×5 (00:04→22:23)
[2022-08-27 05:00] VITALS: BP 110/63
[2022-08-27] MEDS: LEVOTHYROXINE SODIUM 100 MCG TAB PO SCH (06:37)
[2022-08-27 09:00] VITALS: BP 107/58
[2022-08-27 09:39] LABS: Hepatitis B Surface Antibody Negative (Negative)
[2022-08-27] MEDS: methylPREDNISolone SOD SUCC 125 MG/2 ML VL IV SCH ×2 (10:00→20:59)
[2022-08-27 10:17] LABS: Hepatitis A Total Antibody Positive (Negative)
[2022-08-27] MEDS: FUROSEMIDE 20 MG/2 ML VIAL IV SCH (10:28)
[2022-08-27] MEDS: ASPirin 81 mg TAB PO SCH (10:28)
[2022-08-27] MEDS: PANTOPRAZOLE 40 MG/10 ML VIAL INJ IV SCH (10:28)
[2022-08-27] MEDS: ENOXAPARIN SOD 40 MG/0.4 ML SYRINGE SC SCH (10:28)
[2022-08-27 11:25] LABS: Free T3 2.62 pg/mL (2.3-4.2); Free T4 (Free Thyroxine) 1.39 ng/dL (0.89-1.76)
[2022-08-27 13:00] VITALS: BP 113/67
[2022-08-27 13:09] LABS: Hepatitis C Antibody Negative (Negative)
[2022-08-27 17:00] VITALS: BP 101/50
[2022-08-27] MEDS: HYDROcodone-ACET 5/325MG TAB PO PRN (17:11)
[2022-08-27] MEDS ORDERED: DexAMETHasone SOD PHOS 10MG/1ML VIAL INJ IV ONE (17:30)
[2022-08-27] MEDS: MONTELUKAST SODIUM 10 MG TAB PO SCH (20:59)
[2022-08-27 22:00] VITALS: BP 111/52
[2022-08-27] MEDS: guaiFENesin-DM 100/10mg/5ml SYR PO PRN (23:48)
[2022-08-28] MEDS: IPRATROPIUM BROM 0.5 MG/2.5ML INH SOL NEB SCH ×9 (02:00→22:40)
[2022-08-28] MEDS: ALBUTEROL SULF 2.5 MG/0.5ML(0.5%) NEB SOLN NEB SCH ×6 (02:22→22:41)
[2022-08-28 05:00] VITALS: BP 115/46
[2022-08-28] MEDS: LEVOTHYROXINE SODIUM 100 MCG TAB PO SCH (06:26)
[2022-08-28] MEDS: HYDROcodone-ACET 5/325MG TAB PO PRN ×2 (09:07→19:58)
[2022-08-28] MEDS: ENOXAPARIN SOD 40 MG/0.4 ML SYRINGE SC SCH (09:07)
[2022-08-28] MEDS: ASPirin 81 mg TAB PO SCH (09:07)
[2022-08-28] MEDS: FUROSEMIDE 20 MG/2 ML VIAL IV SCH (09:08)
[2022-08-28] MEDS: DexAMETHasone SOD PHOS 10MG/1ML VIAL INJ IV SCH (09:08)
[2022-08-28] MEDS: PANTOPRAZOLE 40 MG/10 ML VIAL INJ IV SCH (09:09)
[2022-08-28] MEDS: methylPREDNISolone SOD SUCC 125 MG/2 ML VL IV SCH ×2 (09:09→22:00)
[2022-08-28] MEDS: guaiFENesin-DM 100/10mg/5ml SYR PO PRN ×2 (09:20→18:35)
[2022-08-28 09:46] VITALS: BP 117/58
[2022-08-28 13:06] VITALS: BP 125/56
[2022-08-28 16:55] VITALS: BP 113/62
[2022-08-28 21:25] VITALS: BP 113/62
[2022-08-28 22:00] VITALS: BP 109/55
[2022-08-28] MEDS: MONTELUKAST SODIUM 10 MG TAB PO SCH (22:00)
[2022-08-29] MEDS: ALBUTEROL SULF 2.5 MG/0.5ML(0.5%) NEB SOLN NEB SCH ×6 (02:23→22:23)
[2022-08-29] MEDS: IPRATROPIUM BROM 0.5 MG/2.5ML INH SOL NEB SCH ×10 (02:23→22:23)
[2022-08-29 05:00] VITALS: BP 118/52
[2022-08-29] MEDS: LEVOTHYROXINE SODIUM 100 MCG TAB PO SCH (06:02)
[2022-08-29 09:00] VITALS: BP 122/50
[2022-08-29] MEDS: PANTOPRAZOLE 40 MG/10 ML VIAL INJ IV SCH (09:43)
[2022-08-29] MEDS: ASPirin 81 mg TAB PO SCH (09:43)
[2022-08-29] MEDS: ENOXAPARIN SOD 40 MG/0.4 ML SYRINGE SC SCH (09:43)
[2022-08-29] MEDS: FUROSEMIDE 20 MG/2 ML VIAL IV SCH (09:43)
[2022-08-29] MEDS: methylPREDNISolone SOD SUCC 125 MG/2 ML VL IV SCH (09:43)
[2022-08-29] MEDS: DexAMETHasone SOD PHOS 10MG/1ML VIAL INJ IV SCH ×4 (09:44→23:53)
[2022-08-29] MEDS: HYDROcodone-ACET 5/325MG TAB PO PRN ×2 (11:55→19:55)
[2022-08-29] MEDS: guaiFENesin-DM 100/10mg/5ml SYR PO PRN ×2 (11:59→19:55)
[2022-08-29 13:00] VITALS: BP 142/59
[2022-08-29 16:58] VITALS: BP 122/66
[2022-08-29] MEDS: MONTELUKAST SODIUM 10 MG TAB PO SCH (21:22)
[2022-08-29 22:00] VITALS: BP 125/54
[2022-08-30] MEDS: ALBUTEROL SULF 2.5 MG/0.5ML(0.5%) NEB SOLN NEB SCH ×5 (01:22→18:11)
[2022-08-30] MEDS: IPRATROPIUM BROM 0.5 MG/2.5ML INH SOL NEB SCH ×6 (01:22→18:11)
[2022-08-30 05:00] VITALS: BP 115/47
[2022-08-30] MEDS: DexAMETHasone SOD PHOS 10MG/1ML VIAL INJ IV SCH ×3 (05:32→18:01)
[2022-08-30] MEDS: LEVOTHYROXINE SODIUM 100 MCG TAB PO SCH (05:32)
[2022-08-30 09:00] VITALS: BP 120/54
[2022-08-30] MEDS: ENOXAPARIN SOD 40 MG/0.4 ML SYRINGE SC SCH (11:06)
[2022-08-30] MEDS: FUROSEMIDE 20 MG/2 ML VIAL IV SCH (11:06)
[2022-08-30] MEDS: PANTOPRAZOLE 40 MG/10 ML VIAL INJ IV SCH (11:06)
[2022-08-30] MEDS: ASPirin 81 mg TAB PO SCH (11:07)
[2022-08-30] MEDS: guaiFENesin-DM 100/10mg/5ml SYR PO PRN ×2 (11:11→18:04)
[2022-08-30 13:20] VITALS: BP 119/85
[2022-08-30] MEDS: HYDROcodone-ACET 5/325MG TAB PO PRN (14:45)
[2022-08-30] MEDS ORDERED: PRED20TA2 PO (15:24)
[2022-08-30] MEDS ORDERED: ALB5IS NEB (15:53)
[2022-08-30] MEDS ORDERED: IPR002IS NEB (15:53)
[2022-08-30 16:56] VITALS: BP 129/57
== END 2022-08-30 18:13 | disposition home or self-care (01) | DRG 140 ==
LOC: ER 14:25 → TELE 18:43 → TELE-CENTR 22:00
PROVIDERS: ADMIT Registered Nurse; ATTEND Internal Medicine
DX: J44.1 Chronic obstructive pulmonary disease with (acute) exacerbation (principal); J96.21 Acute and chronic respiratory failure with hypoxia; E44.0 Moderate protein-calorie malnutrition; I11.0 Hypertensive heart disease with heart failure; E03.9 Hypothyroidism, unspecified; I48.91 Unspecified atrial fibrillation; E78.5 Hyperlipidemia, unspecified; J84.10 Pulmonary fibrosis, unspecified; J44.0 Chronic obstructive pulmonary disease with (acute) lower respiratory infection; Z20.822 Contact with and (suspected) exposure to COVID-19; Z68.36 Body mass index [BMI] 36.0-36.9, adult; J84.9 Interstitial pulmonary disease, unspecified
CPT/HCPCS: 36415; 36600; 71046; 71275; 76705; 80053; 80061; 80320; 82805; 82977; 83605; 83880; 84439; 84443; 84481; 84484; 85025; 85379; 85610; 85730; 86704; 86706; 86708; 86803; 87040; 87077; 87186; 87340; 87426; 87804; 93005; 94640; 96365; 96375; C9113; G0378; J1100; J2543; Q9967